=== PATIENT | female | born 1960 | race Caucasian/White ===

== ENCOUNTER 2025-04-12 09:05 | Inpatient (IN) | payer OTHER, SELFPAY ==
[2025-04-12] VITALS (23 sets, daily range): BP systolic 108–174; BP diastolic 47–75; PULSE 91–129; RESP 14–19; TEMP 36.3–37.1; O2SAT 98–100; BMI 27.1; BMI 26.7
--- NOTE | 2025-04-12 09:23 | EX.ED.DYSGE1 ---
HPI History of Present Illness Chief Complaint: Abn Labs Informant: patient and spouse/S.O. Narrative Narrative: Patient is a 64-year-old female with no significant PMHx presenting with fatigue and weakness. - Reports a large skin mass present for at least 10 years, which has been slowly growing and mushrooming out. - Mass bleeds daily, requiring pressure to stop bleeding after showers. - Evaluated by a physician yesterday, who recommended surgical removal and performed lab work. - Hemoglobin reported as 3.7 g/dL this AM, so sent to hospital. - Experiencing fatigue for about a month, worsening over the past few days and has had some near-syncopal symptoms, no LOC. - Describes legs as feeling rubbery and weak, necessitating frequent rest when walking. - Denies dyspnea or chest discomfort with ambulation. - Denies melena, hematochezia, hematuria, or syncope. - Takes antacids regularly for sour stomach and gas after meals. - Last medical evaluation was in 2013; no known history of DM or HTN. - Family history of heart conditions. PFSH PFS Medical History Non-smoker Medical History no medical history no medical history Allergy/AdvReac Type Severity Reaction Status Date / Time No Known Allergies Allergy Verified 04/12/25 09:06 Social History Smoking Status: Never smoker ROS [facility] ED Constitutional Constitutional ED: Reports fatigue and weakness; Denies chills or fever(s) Eyes Eyes: Denies change in vision or diplopia ENT ENT ED: Denies rhinorrhea or sore throat Cardiovascular Cardiovascular: Reports lightheadedness; Denies chest pain, leg edema, palpitations or syncope Respiratory/Chest Respiratory/Chest: Denies cough, dyspnea or dyspnea on exertion Gastrointestinal Gastrointestinal: Denies abdominal pain, diarrhea, nausea or vomiting Genitourinary Genitourinary ED: Denies dysuria or hematuria Musculoskeletal Musculoskeletal: Denies back pain or neck pain Integumentary Reports other Details: slowly oozing/bleeding mass right upper arm, no pain ; Denies abscess or rash Neurologic Neurologic: Denies headache(s), paresthesias or weakness Psychiatric Psychiatric: Denies anxiety or suicidal thoughts EXAM Physical Exam Const Vital Signs: 04/12/25 09:06 04/12/25 09:20 04/12/25 09:38 Temperature 98.7 F Temperature Source Oral Pulse Rate 129 H Pulse Rate [Lying] 103 H Pulse Rate [Sitting (for 1 minute prior to obtaining)] 102 H Pulse Rate [Standing (for 1 minute prior to obtaining)] 110 H Respiratory Rate 18 Respiratory Pattern Blood Pressure 170/61 H Blood Pressure [Lying] 149/61 H Blood Pressure [Sitting (for 1 minute prior to obtaining)] 157/62 H Blood Pressure [Standing (for 1 minute prior to obtaining)] 108/47 L Blood Pressure Mean 97 Blood Pressure Mean [Lying] 90 Blood Pressure Mean [Sitting (for 1 minute prior to obtaining)] 93 Blood Pressure Mean [Standing (for 1 minute prior to obtaining)] 67 Blood Pressure Source Blood Pressure Location Pulse Ox 98 100 Oxygen Delivery Method Room Air Room Air 04/12/25 09:45 04/12/25 10:59 Temperature 98.2 F Temperature Source Oral Pulse Rate 102 H Pulse Rate [Lying] Pulse Rate [Sitting (for 1 minute prior to obtaining)] Pulse Rate [Standing (for 1 minute prior to obtaining)] Respiratory Rate 18 Respiratory Pattern Normal Blood Pressure 164/64 H Blood Pressure [Lying] Blood Pressure [Sitting (for 1 minute prior to obtaining)] Blood Pressure [Standing (for 1 minute prior to obtaining)] Blood Pressure Mean 97 Blood Pressure Mean [Lying] Blood Pressure Mean [Sitting (for 1 minute prior to obtaining)] Blood Pressure Mean [Standing (for 1 minute prior to obtaining)] Blood Pressure Source Monitor Blood Pressure Location Left Arm Pulse Ox 100 Oxygen Delivery Method Positive well nourished and well developed Constitutional Narrative: pallorus. well-appearing otherwise. General Appearance ED: well developed and NAD HEENT Reports moist mucous membranes normocephalic and atraumatic Eyes PERRL and EOMs intact bilaterally Neck full ROM and supple Resp normal respiratory effort and clear to auscultation bilaterally Cardio regular rate, regular rhythm and no murmurs Rate: tachycardic GI non-tender and non-distended Auscultation: normoactive bowel sounds Palpation: soft Back/Spine no CVA tenderness General Back: other FROM Extremity normal to inspection General Extremety ED: Negative for edema, pulses abnormal or tenderness General Extremity: Negative for edema or pulses abnormal Neuro oriented x3, CN's II-XII intact bilaterally and no sensory deficits noted Sensorium / Orientation: awake and alert Motor Exam: strength 5/5 throughout Psych mental status grossly normal Skin no wounds Skin Narrative: Approximately 10 cm diameter soft tissue mass with multiple punctate sites oozing blood if wrapping taken down in the right lateral upper arm. Exophytic. Nontender. No sign of infection. MDM MDM MDM Narrative Medical decision making narrative: Assessment: The patient is a 64-year-old female presenting for profound symptomatic anemia with hemoglobin 3.9 g/dL and a chronically bleeding cutaneous mass. Orthostatic vitals are positive and creatinine is 1.47, concerning for prerenal acute kidney injury related to chronic blood loss. Iron studies confirm severe iron deficiency; platelet count 621 suggests reactive thrombocytosis. EKG shows nonspecific ST-T changes with tachycardia and normal troponin, making acute coronary syndrome unlikely; elevated proBNP 1,400 without rales or dyspnea indicates possible cardiac strain from anemia rather than overt heart failure. Symptomatic iron-deficiency anemia from the bleeding skin neoplasm is the most likely diagnosis necessitating transfusion and admission; hemoccult sent and pending to rule out GI losses as additional source; that ended up being negative. Plan: - Informed consent obtained for transfusion; risks/benefits discussed. - Typed and crossmatched for 4 U PRBC; transfusion initiated. - Admission under hospitalist service for continued transfusion, iron repletion, renal monitoring, and surgical evaluation of skin mass. - Arranged inpatient surgical consult to assess and manage bleeding skin lesion. - Provided transfusion education and answered all questions; patient agrees with plan. Diagnostics: - Hemoglobin 3.9 g/dL, microcytic hypochromic indices. - Iron studies: markedly low iron stores and saturation. - Creatinine 1.47 mg/dL with no prior comparison. - Platelets 621 K/?L. - ProBNP 1,400 pg/mL. - Troponin normal. - Orthostatic vitals positive. - EKG interpreted: nonspecific ST-T wave abnormalities with tachycardia; no ischemic changes. Independently interpreted by me, Shai Wu. Consultations: - Hospitalist ? accepted inpatient admission for ongoing transfusion and evaluation. History & Record Review Additional record(s) reviewed:: No prior records Lab Data Attestation: I reviewed the patient's lab results. Labs: Laboratory Results - last 24 hr 04/12/25 04/12/25 09:24 09:58 WBC 10.8 RBC 2.88 L Hgb 3.9 L* Hct 16.7 L MCV 58.0 L MCH 13.5 L MCHC 23.4 L RDW Std Deviation 42.4 RDW Coeff of Elisa 21.2 H Plt Count 621 H MPV 8.5 Immature Gran % (Auto) 0.600 Neut % (Auto) 79.6 H Lymph % (Auto) 12.9 L Crane % (Auto) 5.4 Eos % (Auto) 0.9 Baso % (Auto) 0.6 Absolute Neuts (auto) 8.6 H Absolute Lymphs (auto) 1.40 Nucleated RBC % 0.3 Diff Path Review May foll Platelet Estimate MKD INC Hypochromasia 3+ Anisocytosis 1+ Sodium 139 Potassium 4.0 Chloride 104 Carbon Dioxide 20.9 L Anion Gap 14 BUN 26 H Creatinine 1.47 H Estim Creat Clear Calc 46.60 L Est GFR (MDRD) Non-Af 40 L BUN/Creatinine Ratio 17.7 Glucose 132 H Calcium 9.5 Iron 10 L TIBC 376 Iron Saturation 2.6 L Unsaturated IBC 366 Ferritin 4 L Troponin T High Sens 14 NT pro BNP II 1406 H Urine Color Yellow Urine Clarity Clear Urine pH 5.0 Ur Specific [place] 1.020 Urine Protein 30 H Urine Glucose (UA) Normal Urine Ketones Negative Urine Occult Blood 25 H Urine Nitrite Negative Urine Bilirubin Negative Urine Urobilinogen Normal Ur Leukocyte Esterase 500 H Urine RBC 0 SEEN Urine WBC 0-5 SEEN Ur Squamous Epith Cells 0 SEEN Urine Bacteria 0 SEEN Urine Mucus 0 SEEN Blood Type A NEGATIVE Antibody Screen NEGATIVE Crossmatch See Detail Radiography Chest X-Ray - ED: 2 View, Read by ED Physician, No Acute Disease and No Infiltrates Diagnostic Testing: Clinical Impression(s) from Imaging Studies Chest X-Ray 04/12/25 09:52 IMPRESSION: No acute abnormality Reading Location: [facility] Rhythm Strip Rhythm Strip: Sinus Tach Rate: 124 Ectopy: None EKG Initial EKG: Attestation: I personally reviewed and interpreted this EKG as follows: Interpretation: No Acute Injury Pattern, Sinus Tachycardia and Non-Specific ST Changes Prior: No Prior Management Discussion w/another healthcare provider: Hospitalist Critical Care Time Critical Care Time: Yes Critical care time (excluding procedures): 30-74 minutes (33 min), Including time spent:, Discussing w/Patient &/or Family/Bilingual Receptionist, Discussing w/Consultants, Arranging Admission or Transfer and Performing Direct Patient Care at Bedside Discharge Plan Dx/Rx/DC Orders Clinical Impression: Symptomatic anemia, Renal insufficiency, Mass of skin of right upper extremity, Orthostatic hypotension, Iron deficiency anemia, Chronic blood loss anemia Disposition Disposition: Acute Care Hospital [facility]
[2025-04-12 09:42] LABS: Hematocrit 16.7 % (37-47); Hemoglobin 3.9 g/dL (12.0-15.0); Immature Granulocytes Count 0.060 X10^3/uL (0.0-0.0); Mean Corp Hgb Conc 23.4 g/dL (32-36); Mean Corpuscular Volume 58.0 fL (81-99); Mean Platelet Vol. 8.5 fl (6.2-12.0); NRBC Flagged by Analyzer 0.3 % (0-5); POSITIVE COUNT YES; POSITIVE MORPHOLOGY YES; Platelet Count 621 K/mm3 (150-450); RBC Distribution Width CV 21.2 % (11.6-14.6); RBC Distribution Width SD 42.4 fl (35.1-43.9); Red Blood Count 2.88 M/mm3 (4.2-5.4); White Blood Count 10.8 K/mm3 (4.4-11.0)
[2025-04-12 09:48] LABS: Differential Indicated SCAN CRITERIA MET
--- NOTE | 2025-04-12 09:52 | RAD_ITS ---
PROCEDURE: RAD/Chest 1 View (Portable)
[2025-04-12 10:02] LABS: Hypochromasia 3+
[2025-04-12 10:03] LABS: Anisocytosis 1+
[2025-04-12 10:05] LABS: Mucous, Urine 0 SEEN /hpf (<or=2+); Red Blood Cells-Urine 0 SEEN /hpf (0-5); Squamous Epithelial Cells - UA 0 SEEN /hpf (5-10)
[2025-04-12 10:08] LABS: Color, Urine Yellow (Yellow); Glucose, Dipstick Normal (Normal); Ketone-Dipstick Negative (Negative); Leukocyte Esterase-Dipstick 500 /ul (Negative); Nitrite-Dipstick Negative (Negative); Occult Blood-Urine 25 /ul (Negative); Protein-Dipstick 30 mg/dl (Negative); Specific Gravity, Urine 1.020 (1.002-1.030); Urine Bilirubin Dipstick Negative (Negative)
[2025-04-12 10:28] LABS: Anion Gap 14 (5-15); BUN 26 mg/dL (4-19); BUN/Creat Ratio 17.7 RATIO (10-20); Calcium,Total 9.5 mg/dL (7.6-11.0); Carbon Dioxide 20.9 mmol/L (21.0-32.0); Chloride 104 mmol/L (98-108); Estimated Creatinine Clearance 46.60 ml/min (50-250); Glucose 132 mg/dL (70-99); Potassium 4.0 mmol/L (3.3-5.1); Pro- Brain NATRIURETIC PEPTIDE 1406 pg/mL (<=900); Troponin T High Sensitivity 14 ng/L (<=14)
[2025-04-12 10:41] LABS: Ferritin 4 ng/mL (22-378); Iron 10 ug/dL (50-170); Iron Binding Capacity,Total 376 ug/dL (250-450); Iron Binding Capacity,Unsat 366 ug/dL (228-428)
--- NOTE | 2025-04-12 11:08 | PCM.HP.STD ---
HPI - General General Date of Admission: 04/12/25 Date of Service: 04/12/25 Chief Complaint: Fatigue HPI Narrative STEPHANIE VELEZ, is a 64 F in relatively good health with no chronic medical issues who has not been to a physician for over a decade presented to the emergency department with fatigue. Per patient she did notice increasing fatigue over the past couple of days. She does report the presence of a soft tissue lesion on the lateral aspect of the right forearm which has existed for over a decade. She did admit to occasional bleeding from the lesion. She had apparently refused to see any doctor. She finally made a decision to present to the emergency department hemoglobin was found to be 3.9. On further questioning patient denied any black tarry stools. Denied any vomiting of blood. He denied any use of [id number] pain medications. Decision was made to admit patient to a monitored bed. Patient was typed and crossmatched and an order given for patient to be transfused with 4 unit PRBC prior to patient being admitted. [facility] Medical History Non-smoker Medical History no medical history Allergy/AdvReac Type Severity Reaction Status Date / Time No Known Allergies Allergy Verified 04/12/25 09:06 Social History Smoking Status: Never smoker ROS ROS Narrative GENERAL: denies fever, chills, night sweats, weight loss, anorexia HEENT: denies headache, sinus congestion, or drainage, dysphagia RESPIRATORY: dyspnea on exertion CARDIAC: denies chest pain, palpitations, orthopnea, PND GASTROINTESTINAL: denies abdominal pain, nausea, vomiting, melena, GENITOURINARY: denies dysuria, urgency, frequency, heamaturia EXTREMITY: denies swelling MUSCULOSKELETAL: denies current joint pain or tenderness NEUROLOGIC: denies focal numbness, weakness, tingling HEMATOLOGIC: denies easy bruising and/or hemorrhage INTEGUMENT: Soft tissue skin lesion on the lateral aspect of the right forearm PSYCHIATRIC: denies suicidal or homicidal ideation Vital Signs Vital Signs Vital Signs: 04/12/25 09:06 04/12/25 09:20 04/12/25 09:38 Temperature 98.7 F Temperature Source Oral Pulse Rate 129 H Pulse Rate [Lying] 103 H Pulse Rate [Sitting (for 1 minute prior to obtaining)] 102 H Pulse Rate [Standing (for 1 minute prior to obtaining)] 110 H Respiratory Rate 18 Respiratory Pattern Blood Pressure 170/61 H Blood Pressure [Lying] 149/61 H Blood Pressure [Sitting (for 1 minute prior to obtaining)] 157/62 H Blood Pressure [Standing (for 1 minute prior to obtaining)] 108/47 L Blood Pressure Mean 97 Blood Pressure Mean [Lying] 90 Blood Pressure Mean [Sitting (for 1 minute prior to obtaining)] 93 Blood Pressure Mean [Standing (for 1 minute prior to obtaining)] 67 Blood Pressure Source Blood Pressure Location Pulse Ox 98 100 Oxygen Delivery Method Room Air Room Air 04/12/25 09:45 04/12/25 10:59 Temperature 98.2 F Temperature Source Oral Pulse Rate 102 H Pulse Rate [Lying] Pulse Rate [Sitting (for 1 minute prior to obtaining)] Pulse Rate [Standing (for 1 minute prior to obtaining)] Respiratory Rate 18 Respiratory Pattern Normal Blood Pressure 164/64 H Blood Pressure [Lying] Blood Pressure [Sitting (for 1 minute prior to obtaining)] Blood Pressure [Standing (for 1 minute prior to obtaining)] Blood Pressure Mean 97 Blood Pressure Mean [Lying] Blood Pressure Mean [Sitting (for 1 minute prior to obtaining)] Blood Pressure Mean [Standing (for 1 minute prior to obtaining)] Blood Pressure Source Monitor Blood Pressure Location Left Arm Pulse Ox 100 Oxygen Delivery Method Weight Weight: 85.638 kg Body Mass Index (BMI) 27.1 Physical Exam Narrative GENERAL: cooperative HEENT: Atraumatic; normocephalic EYES; Anicteric, pallor of the conjunctiva NECK; supple, normal thyroid, RESPIRATORY: Diminished to auscultation CARDIOVASCULAR: Regular S1 S2, GI: soft, normoactive bowel sounds, : No Renal angle tenderness; EXTREMITIES: No edema, no clubbing, MUSCULOSKELETAL: no muscle wasting NEURO: Awake; no lateralizing signs. SKIN: Soft tissue lesion measuring about 15 cm with areas of bleeding on the lateral aspect of the right forearm PSYCH; Flat affect Results Lab / Micro Data 04/12/25 09:24 04/12/25 09:24 Labs: Laboratory Results - last 24 hr 04/12/25 09:24: WBC 10.8, RBC 2.88 L, Hgb 3.9 L*, Hct 16.7 L, MCV 58.0 L, MCH 13.5 L, MCHC 23.4 L, RDW Std Deviation 42.4, RDW Coeff of Elisa 21.2 H, Plt Count 621 H, MPV 8.5, Immature Gran % (Auto) 0.600, Neut % (Auto) 79.6 H, Lymph % (Auto) 12.9 L, Cole % (Auto) 5.4, Eos % (Auto) 0.9, Baso % (Auto) 0.6, Absolute Neuts (auto) 8.6 H, Absolute Lymphs (auto) 1.40, Nucleated RBC % 0.3, Diff Path Review May foll, Platelet Estimate MKD INC, Hypochromasia 3+, Anisocytosis 1+, Sodium 139, Potassium 4.0, Chloride 104, Carbon Dioxide 20.9 L, Anion Gap 14, BUN 26 H, Creatinine 1.47 H, Estim Creat Clear Calc 46.60 L, Est GFR (MDRD) Non-Af 40 L, BUN/Creatinine Ratio 17.7, Glucose 132 H, Calcium 9.5, Iron 10 L, TIBC 376, Iron Saturation 2.6 L, Unsaturated IBC 366, Ferritin 4 L, Troponin T High Sens 14, NT pro BNP II 1406 H, Blood Type A NEGATIVE, Antibody Screen NEGATIVE, Crossmatch See Detail 04/12/25 09:58: Urine Color Yellow, Urine Clarity Clear, Urine pH 5.0, Ur Specific [place] 1.020, Urine Protein 30 H, Urine Glucose (UA) Normal, Urine Ketones Negative, Urine Occult Blood 25 H, Urine Nitrite Negative, Urine Bilirubin Negative, Urine Urobilinogen Normal, Ur Leukocyte Esterase 500 H, Urine RBC 0 SEEN, Urine WBC 0-5 SEEN, Ur Squamous Epith Cells 0 SEEN, Urine Bacteria 0 SEEN, Urine Mucus 0 SEEN Rhythm Strip Rhythm Strip: Sinus Tach Rate: 124 Ectopy: None Imaging Radiology Impression Chest X-Ray 04/12/25 09:52 IMPRESSION: No acute abnormality Reading Location: [facility] Assessment & Plan Assessment/Plan (1) Mass of skin of right upper extremity: (2) Symptomatic anemia: PLAN: Plan Patient is a 64-year-old female presented with exertional fatigue found to be anemic with a hemoglobin of 3.9 1. Severe symptomatic anemia ? Patient hemoglobin on admission was 3.9. Subsequent red cell indices indicated severe microcytic anemia with MCV of 58 and MCH of 31.5 and MCV HC of 23.4. Subsequently ordered iron studies. Patient typed and screened and crossmatched and an order given from the emergency department for patient to be transfused with 3 unit PRBC. Did explain to patient the source of anemia from chronic bleeding from the lesion on her right forearm however given her age patient will need to undergo endoscopic evaluation to rule out any underlying malignancy 2. Severe iron deficiency anemia ? Patient presented with symptomatic anemia and order was given for patient to be transfused with 4 unit PRBC. Iron studies did reveal total iron of 10 and iron saturation of 2.6. Patient was also ordered parenteral iron 3. Thrombocytosis ? Reactive secondary to patient severe iron deficiency anemia 4. Renal failure ? Baseline creatinine unknown patient started on IV hydration repeat BMP ordered for a.m. 5. Abnormal urinalysis ? Patient was found to have positive leukocyte esterase started on ceftriaxone urine culture sent 6. Elevated blood pressure ? Patient does not have a known diagnosis of hypertension. She did admit to having whitecoat syndrome. Will continue to monitor and start patient on antihypertensives if patient blood pressure remains elevated 7. DVT prophylaxis ? Bilateral SCDs Time spent in the patient's overall evaluation,decision-making process, review of diagnostic data, adjustment of management, discussion with other providers, nursing nursing and ancillary staff involved in patient's care documentation, 75 Minutes Advance planning; did discuss with the patient and family regarding advanced directives as well as CODE STATUS. Did explain the various scenarios involved ( FULL CODE, DNR CCA, DNR CCA with no intubation, and DNR CC and what each meant) patient elected to be DNR CCA no intubation. Order was placed. Time spent on discussion 16 minutes. Charges/Coding Multi Select Codes Visit Charges Visit Charges: 00284 Init Hosp Hospitalists' Procedures Procedures: 20353 Advncd Care Plan 30 Min
--- NOTE | 2025-04-12 11:51 | CASEMGMT ---
Care Management Face to Face with patient for initial transition planning/care coordination assessment in the ED.? This sports writer introduced self and role at [facility]. Patient alert and oriented. Patient willing to participate in assessment and is able to answer all questions appropriately.? Care providers, pharmacy, and demographics verified. Admitting Diagnosis: ?Chronic blood loss Other diagnosis history: ?Anemia PCP: ?Daniel Specialists: ?None Preferred Pharmacy: [facility] in [place] Insurance: ?[place] Prescription Benefit: ?yes Living Will/HPOA: ?Has completed , will bring in when able LNOK: ? Living Arrangements: ?patient lives with in a 3 story home, independent with ADLs and IADLs.? Transportation: ?Patient drives, no concerns with transportation DME: ?blood pressure cuff HHC: ?none SNF/Rehab: ?none Community Resources: ?none Behavioral Health History: ?none Patient goals: Patient wishes to discharge home, denies need for home health care at this time. Patient denies any further needs or concerns at this time. Disposition Plan: admission to acute; RN CM/SW to follow for discharge planning needs that may arise. Chery Ferrara, TREE MARKER, GROUNDSKEEPER SUPERVISOR
--- NOTE | 2025-04-12 13:40 | CASEMGMT ---
Social Work Primary Care Doctor: Elisa Dorsey [facility] Speciality doctors: none Insurance: [employer] [employer] Pharmacy: Patient utilizes [facility] in [place] Advanced directives: Patient reported she has a POA and LW and will provide a copy. LNOK:. Living Situation: Patient lives at home with her . There are no steps into the home. There is a bathroom and bedroom available on the first floor. Her mother and father lives about 5 minutes away from the patient. Her sister lives in [place]. ADL's/Prior level of functioning: independent prior Transportation: Patient still drives. DME: RW residential/home health history: none for both Support/Community Services: none Mental Health: none Substance abuse history: none Assessment: Patient lives at home with her . There are no steps into the home. There is a bathroom and bedroom available on the first floor. Her mother and father lives about 5 minutes away from the patient. Her sister lives in [place]. Patient retired a year ago. She enjoys working on [employer]. She is also working de-cluttering her home. PLAN: [place] home. Social Work to continue to follow. PRIYA Altman
[2025-04-12] MEDS: Sodium Ferric Gluconat 250 MG in 0.9% Normal Saline 250 ML 135 MG IV (14:49)
[2025-04-12] MEDS: 0.9% Normal Saline (1000mL) 1,000 ML 100 ML IV (17:32)
[2025-04-12 19:39] LABS: Troponin T High Sensitivity 12 ng/L (<=14)
[2025-04-12 21:11] LABS: Troponin T High Sens 2 HR 13 ng/L (<=14)
[2025-04-12 23:26] LABS: Troponin T High Sens 4 HR 11 ng/L (<=14)
[2025-04-13 00:53] LABS: Hematocrit 27.1 % (37-47); Hemoglobin 7.9 g/dL (12.0-15.0)
[2025-04-13 04:24] LABS: Hematocrit 25.8 % (37-47); Hemoglobin 7.6 g/dL (12.0-15.0); Immature Granulocytes Count 0.160 X10^3/uL (0.0-0.0); Mean Corp Hgb Conc 29.5 g/dL (32-36); Mean Corpuscular Volume 68.1 fL (81-99); Mean Platelet Vol. 8.5 fl (6.2-12.0); NRBC Flagged by Analyzer 1.2 % (0-5); POSITIVE MORPHOLOGY YES; Platelet Count 444 K/mm3 (150-450); RBC Distribution Width CV 28.8 % (11.6-14.6); RBC Distribution Width SD 67.4 fl (35.1-43.9); Red Blood Count 3.79 M/mm3 (4.2-5.4); White Blood Count 10.2 K/mm3 (4.4-11.0)
[2025-04-13 04:28] LABS: Differential Indicated SCAN CRITERIA MET
[2025-04-13 05:07] LABS: Magnesium 2.0 mg/dL (1.5-2.2)
[2025-04-13 05:24] LABS: AST(SGOT) 13 U/L (<=31); Alanine Aminotransfer ALT/SGPT < 5 U/L (<=34); Albumin, Serum 3.5 g/dL (3.4-4.8); Alkaline Phosphatase 57 U/L (35-104); Anion Gap 11 (5-15); BUN 24 mg/dL (4-19); BUN/Creat Ratio 22.7 RATIO (10-20); Bilirubin, Direct 0.58 mg/dL (0.00-0.30); Calcium,Total 8.6 mg/dL (7.6-11.0); Carbon Dioxide 19.7 mmol/L (21.0-32.0); Chloride 108 mmol/L (98-108); Estimated Creatinine Clearance 64.23 ml/min (50-250); Globulin 3.2 g/dL (2.2-4.2); Glucose 107 mg/dL (70-99); Potassium 4.1 mmol/L (3.3-5.1)
[2025-04-13 05:30] LABS: Anisocytosis 2+; Hypochromasia 2+
[2025-04-13 05:31] VITALS: BP 156/74; PULSE 103; RESP 16; TEMP 36.4; O2SAT 100
--- NOTE | 2025-04-13 08:18 | PN.HOSP_ITS ---
Reason for Visit
--- NOTE | 2025-04-13 08:18 | PCM.PN.HOSP ---
Reason for Visit Chief Complaint: Fatigue Subjective Subjective Patient seen, hemoglobin up to 7.6. An order was given for patient to receive additional unit of parenteral iron. Patient blood pressure control not optimal up to 171/69 started patient on losartan and amlodipine Objective Data Objective Data Vital Signs: Vital Signs Temp Pulse Resp BP Pulse Ox O2 Del Method 97.5 F L 103 H 16 156/74 H 100 Room Air 04/13/25 05:31 04/13/25 05:31 04/13/25 05:31 04/13/25 05:31 04/13/25 05:31 04/13/25 05:31 Oxygen Delivery Method Room Air Weight: 84.5 kg Body Mass Index (BMI) 26.7 Intake & Output: Intake and Output for Last 24 Hours 04/11/25 04/12/25 04/13/25 23:59 23:59 23:59 Intake Total 2198.33 / 2198.33 Balance 2198.33 / 2198.33 Lab / Micro Data 04/13/25 04:09 04/13/25 04:09 Labs: Laboratory Results - last 24 hr 04/12/25 09:24: WBC 10.8, RBC 2.88 L, Hgb 3.9 L*, Hct 16.7 L, MCV 58.0 L, MCH 13.5 L, MCHC 23.4 L, RDW Std Deviation 42.4, RDW Coeff of Elisa 21.2 H, Plt Count 621 H, MPV 8.5, Immature Gran % (Auto) 0.600, Neut % (Auto) 79.6 H, Lymph % (Auto) 12.9 L, [place] % (Auto) 5.4, Eos % (Auto) 0.9, Baso % (Auto) 0.6, Absolute Neuts (auto) 8.6 H, Absolute Lymphs (auto) 1.40, Nucleated RBC % 0.3, Diff Path Review Reviewed, Platelet Estimate MKD INC, Hypochromasia 3+, Anisocytosis 1+, Sodium 139, Potassium 4.0, Chloride 104, Carbon Dioxide 20.9 L, Anion Gap 14, BUN 26 H, Creatinine 1.47 H, Estim Creat Clear Calc 46.60 L, Est GFR (MDRD) Non-Af 40 L, BUN/Creatinine Ratio 17.7, Glucose 132 H, Calcium 9.5, Iron 10 L, TIBC 376, Iron Saturation 2.6 L, Unsaturated IBC 366, Ferritin 4 L, Troponin T High Sens 14, NT pro BNP II 1406 H, Blood Type A NEGATIVE, Antibody Screen NEGATIVE, Crossmatch See Detail 04/12/25 09:58: Urine Color Yellow, Urine Clarity Clear, Urine pH 5.0, Ur Specific [place] 1.020, Urine Protein 30 H, Urine Glucose (UA) Normal, Urine Ketones Negative, Urine Occult Blood 25 H, Urine Nitrite Negative, Urine Bilirubin Negative, Urine Urobilinogen Normal, Ur Leukocyte Esterase 500 H, Urine RBC 0 SEEN, Urine WBC 0-5 SEEN, Ur Squamous Epith Cells 0 SEEN, Urine Bacteria 0 SEEN, Urine Mucus 0 SEEN 04/12/25 18:37: Troponin T High Sens 12 D 04/12/25 20:41: Troponin T Hi Sens 2 Hr 13 04/12/25 22:49: Troponin T Hi Sens 4Hr 11 04/13/25 00:37: Hgb 7.9 L, Hct 27.1 L 04/13/25 04:09: WBC 10.2, RBC 3.79 L, Hgb 7.6 L, Hct 25.8 L, MCV 68.1 L D, MCH 20.1 L, MCHC 29.5 L D, RDW Std Deviation 67.4 H, RDW Coeff of Elisa 28.8 H, Plt Count 444, MPV 8.5, Immature Gran % (Auto) 1.600 H, Neut % (Auto) 69.8, Lymph % (Auto) 16.4 L, [place] % (Auto) 9.3, Eos % (Auto) 2.2, Baso % (Auto) 0.7, Absolute Neuts (auto) 7.1, Absolute Lymphs (auto) 1.67, Nucleated RBC % 1.2, Hypochromasia 2+, Anisocytosis 2+, Sodium 138, Potassium 4.1, Chloride 108, Carbon Dioxide 19.7 L, Anion Gap 11, BUN 24 H, Creatinine 1.06, Estim Creat Clear Calc 64.23, Est GFR (MDRD) Non-Af 59 L, BUN/Creatinine Ratio 22.7 H, Glucose 107 H, Calcium 8.6, Phosphorus 3.0, Magnesium 2.0, Total Bilirubin 1.52 H, Direct Bilirubin 0.58 H, AST 13, ALT < 5, Alkaline Phosphatase 57, Total Protein 6.6, Albumin 3.5, Globulin 3.2, TSH 2.240 Micro: Microbiology 04/12/25 10:50 Stool Stool Occult Blood (HILARY) - Final Radiography Diagnostic Testing: Radiology Impression Chest X-Ray 04/12/25 09:52 IMPRESSION: No acute abnormality Reading Location: [facility] Rhythm Strip Rhythm Strip: Sinus Tach Rate: 124 Ectopy: None Physical Exam Narrative GENERAL: cooperative HEENT: Atraumatic; normocephalic EYES; Anicteric, pallor of the conjunctiva NECK; supple, normal thyroid, RESPIRATORY: Diminished to auscultation CARDIOVASCULAR: Regular S1 S2, GI: soft, normoactive bowel sounds, : No Renal angle tenderness; EXTREMITIES: No edema, no clubbing, MUSCULOSKELETAL: no muscle wasting NEURO: Awake; no lateralizing signs. SKIN: Soft tissue lesion measuring about 15 cm with areas of bleeding on the lateral aspect of the right forearm PSYCH; Flat affect Assessment & Plan Assessment/Plan (1) Mass of skin of right upper extremity: (2) Symptomatic anemia: PLAN: Plan Patient is a 64-year-old female presented with exertional fatigue found to be anemic with a hemoglobin of 3.9 1. Severe symptomatic anemia ? Patient hemoglobin on admission was 3.9. Subsequent red cell indices indicated severe microcytic anemia with MCV of 58 and MCH of 31.5 and MCV HC of 23.4. Subsequently ordered iron studies. Patient typed and screened and crossmatched and an order given from the emergency department for patient to be transfused with 3 unit PRBC. Did explain to patient the source of anemia from chronic bleeding from the lesion on her right forearm however given her age patient will need to undergo endoscopic evaluation to rule out any underlying malignancy - 04/13/2025 patient hemoglobin up to 7.6 and order was given for patient to receive additional parenteral iron 2. Severe iron deficiency anemia ? Patient presented with symptomatic anemia and order was given for patient to be transfused with 4 unit PRBC. Iron studies did reveal total iron of 10 and iron saturation of 2.6. Patient was also ordered parenteral iron 3. Thrombocytosis ? Reactive secondary to patient severe iron deficiency anemia 4. Acute renal failure ? Baseline creatinine unknown patient started on IV hydration repeat BMP ordered for a.m. ? 04/13/2025; patient baseline creatinine was unknown at the time of her admission kidney function however did improve and creatinine is down to 1.06 5. Abnormal urinalysis ? Patient was found to have positive leukocyte esterase started on ceftriaxone urine culture sent ? 04/13/2025; patient remains on ceftriaxone urine cultures pending 6. Elevated blood pressure?newly diagnosed hypertension ? Patient does not have a known diagnosis of hypertension. She did admit to having whitecoat syndrome. Will continue to monitor and start patient on antihypertensives if patient blood pressure remains elevated ? 04/13/2025; patient blood pressure remains markedly elevated patient started on amlodipine as well as losartan 7. Soft tissue lesion measuring about 15 cm with areas of bleeding on the lateral aspect of the right forearm ? Patient has had a lesion for over 10 years. Plan was to have consulted plastic surgery for eval however plastic surgery currently not taking any consult. Plan is to schedule an outpatient appointment with either plastic surgery or dermatology on discharge 8. DVT prophylaxis ? Bilateral SCDs Time spent in the patient's overall evaluation,decision-making process, review of diagnostic data, adjustment of management, discussion with other providers, nursing nursing and ancillary staff involved in patient's care documentation, 50-minute Charges/Coding Visit Charges Inpatient E&M: 24334 [facility] Hosp L3
[2025-04-13] MEDS: 0.9% Normal Saline (1000mL) 1,000 ML 100 ML IV ×2 (09:12→21:50)
[2025-04-13 09:16] VITALS: BP 171/69; PULSE 96; RESP 16; TEMP 36.6; O2SAT 100
[2025-04-13 13:37] VITALS: BP 170/72; PULSE 103; RESP 14; TEMP 36.6; O2SAT 100
--- NOTE | 2025-04-13 15:38 | WOUNDNOTE ---
wound photo: right posterior upper arm
--- NOTE | 2025-04-13 15:39 | WOUNDNOTE ---
wound photo: right posterior upper arm
[2025-04-13 21:47] VITALS: BP 165/75; PULSE 104; RESP 20; TEMP 37.1; O2SAT 99
[2025-04-14 05:14] VITALS: BP 162/87; PULSE 89; RESP 18; TEMP 37.3; O2SAT 100
[2025-04-14] MEDS: 0.9% Normal Saline (1000mL) 1,000 ML 100 ML IV (06:40)
[2025-04-14 06:48] LABS: Hematocrit 27.4 % (37-47); Hemoglobin 7.8 g/dL (12.0-15.0); Immature Granulocytes Count 0.050 X10^3/uL (0.0-0.0); Mean Corp Hgb Conc 28.5 g/dL (32-36); Mean Corpuscular Volume 69.9 fL (81-99); Mean Platelet Vol. 8.6 fl (6.2-12.0); NRBC Flagged by Analyzer 0.5 % (0-5); POSITIVE MORPHOLOGY YES; Platelet Count 467 K/mm3 (150-450); RBC Distribution Width CV 29.9 % (11.6-14.6); RBC Distribution Width SD 71.7 fl (35.1-43.9); Red Blood Count 3.92 M/mm3 (4.2-5.4); White Blood Count 9.7 K/mm3 (4.4-11.0)
[2025-04-14 06:49] LABS: Differential Indicated SCAN CRITERIA MET
[2025-04-14 07:13] LABS: Anisocytosis 3+; Differential Comment SCANNED
--- NOTE | 2025-04-14 07:37 | PN.HOSP_ITS ---
Reason for Visit
--- NOTE | 2025-04-14 07:37 | PCM.PN.HOSP ---
Reason for Visit Chief Complaint: Fatigue Subjective Subjective Patient seen hemoglobin stable at 7.8. Plan is for patient to follow-up with primary care physician to be referred to dermatology/plastic surgery as outpatient. Patient will also need to follow-up with GI for outpatient endoscopic evaluation Objective Data Objective Data Vital Signs: Vital Signs Temp Pulse Resp BP Pulse Ox O2 Del Method 99.1 F 89 18 162/87 H 100 Room Air 04/14/25 05:14 04/14/25 05:14 04/14/25 05:14 04/14/25 05:14 04/14/25 05:14 04/14/25 05:14 Oxygen Delivery Method Room Air Weight: 84.5 kg Body Mass Index (BMI) 26.7 Intake & Output: Intake and Output for Last 24 Hours 04/12/25 04/13/25 04/14/25 23:59 23:59 23:59 Intake Total 2198.33 / 2198.33 2811.67 / 2811.67 883.33 / 883.33 Balance 2198.33 / 2198.33 2811.67 / 2811.67 883.33 / 883.33 Lab / Micro Data 04/14/25 06:31 04/14/25 06:31 Labs: Laboratory Results - last 24 hr 04/14/25 06:31: WBC 9.7, RBC 3.92 L, Hgb 7.8 L, Hct 27.4 L, MCV 69.9 L, MCH 19.9 L, MCHC 28.5 L, RDW Std Deviation 71.7 H, RDW Coeff of Elisa 29.9 H, Plt Count 467 H, MPV 8.6, Immature Gran % (Auto) 0.500, Neut % (Auto) 62.7, Lymph % (Auto) 20.7, [place] % (Auto) 9.3, Eos % (Auto) 6.1 H, Baso % (Auto) 0.7, Absolute Neuts (auto) 6.1, Absolute Lymphs (auto) 2.01, Nucleated RBC % 0.5, Differential Comment SCANNED, Anisocytosis 3+ Micro: Microbiology 04/12/25 09:58 Urine, Clean Catch Urine Culture - Final Mixed Gram Positive Organisms 04/12/25 10:50 Stool Stool Occult Blood (HILARY) - Final Rhythm Strip Rhythm Strip: Sinus Tach Rate: 124 Ectopy: None Physical Exam Narrative GENERAL: cooperative HEENT: Atraumatic; normocephalic EYES; Anicteric, pallor of the conjunctiva NECK; supple, normal thyroid, RESPIRATORY: Diminished to auscultation CARDIOVASCULAR: Regular S1 S2, GI: soft, normoactive bowel sounds, : No Renal angle tenderness; EXTREMITIES: No edema, no clubbing, MUSCULOSKELETAL: no muscle wasting NEURO: Awake; no lateralizing signs. SKIN: Soft tissue lesion measuring about 15 cm with areas of bleeding on the lateral aspect of the right forearm PSYCH; Flat affect Assessment & Plan Assessment/Plan (1) Mass of skin of right upper extremity: (2) Symptomatic anemia: PLAN: Plan Patient is a 64-year-old female presented with exertional fatigue found to be anemic with a hemoglobin of 3.9 1. Severe symptomatic anemia ? Patient hemoglobin on admission was 3.9. Subsequent red cell indices indicated severe microcytic anemia with MCV of 58 and MCH of 31.5 and MCV HC of 23.4. Subsequently ordered iron studies. Patient typed and screened and crossmatched and an order given from the emergency department for patient to be transfused with 3 unit PRBC. Did explain to patient the source of anemia from chronic bleeding from the lesion on her right forearm however given her age patient will need to undergo endoscopic evaluation to rule out any underlying malignancy - 04/13/2025 patient hemoglobin up to 7.6 and order was given for patient to receive additional parenteral iron ? 04/14/2025;Patient seen hemoglobin stable at 7.8. Plan is for patient to follow-up with primary care physician to be referred to dermatology/plastic surgery as outpatient. Patient will also need to follow-up with GI for outpatient endoscopic evaluation 2. Severe iron deficiency anemia ? Patient presented with symptomatic anemia and order was given for patient to be transfused with 4 unit PRBC. Iron studies did reveal total iron of 10 and iron saturation of 2.6. Patient was also ordered parenteral iron 3. Thrombocytosis ? Reactive secondary to patient severe iron deficiency anemia 4. Acute renal failure ? Baseline creatinine unknown patient started on IV hydration repeat BMP ordered for a.m. ? 04/13/2025; patient baseline creatinine was unknown at the time of her admission kidney function however did improve and creatinine is down to 1.06 5. Abnormal urinalysis ? Patient was found to have positive leukocyte esterase started on ceftriaxone urine culture sent ? 04/13/2025; patient remains on ceftriaxone urine cultures pending 6. Elevated blood pressure?newly diagnosed hypertension ? Patient does not have a known diagnosis of hypertension. She did admit to having whitecoat syndrome. Will continue to monitor and start patient on antihypertensives if patient blood pressure remains elevated ? 04/13/2025; patient blood pressure remains markedly elevated patient started on amlodipine as well as losartan 7. Soft tissue lesion measuring about 15 cm with areas of bleeding on the lateral aspect of the right forearm ? Patient has had a lesion for over 10 years. Plan was to have consulted plastic surgery for eval however plastic surgery currently not taking any consult. Plan is to schedule an outpatient appointment with either plastic surgery or dermatology on discharge 8. DVT prophylaxis ? Bilateral SCDs Time spent in the patient's overall evaluation,decision-making process, review of diagnostic data, adjustment of management, discussion with other providers, nursing nursing and ancillary staff involved in patient's care documentation, 35-minute
[2025-04-14 07:39] LABS: Anion Gap 11 (5-15); BUN 18 mg/dL (4-19); BUN/Creat Ratio 16.2 RATIO (10-20); Calcium,Total 8.8 mg/dL (7.6-11.0); Carbon Dioxide 20.4 mmol/L (21.0-32.0); Chloride 109 mmol/L (98-108); Estimated Creatinine Clearance 61.34 ml/min (50-250); Glucose 97 mg/dL (70-99); Potassium 4.2 mmol/L (3.3-5.1)
[2025-04-14 08:39] VITALS: BP 156/76; PULSE 101; RESP 14; TEMP 37.3; O2SAT 100
--- NOTE | 2025-04-14 09:45 | PCM.DC.SUM ---
Providers Date of Admission: 04/12/25 Date of Discharge: 04/14/25 Primary Care Physician: Peter Sanchez PA-C Consultations 04/13/25 14:03 Consult: Onc/Wound/household appliance installer Routine Comment: Reason For Visit: SEVERE ANEMIA Diagnosis Discharge Diagnosis (1) Mass of skin of right upper extremity: Status: Acute Code(s): R22.31 - Localized swelling, mass and lump, right upper limb (2) Symptomatic anemia: Status: Acute Code(s): D64.9 - Anemia, unspecified Plan Patient is a 64-year-old female presented with exertional fatigue found to be anemic with a hemoglobin of 3.9 1. Severe symptomatic anemia ? Patient hemoglobin on admission was 3.9. Subsequent red cell indices indicated severe microcytic anemia with MCV of 58 and MCH of 31.5 and MCV HC of 23.4. Subsequently ordered iron studies. Patient typed and screened and crossmatched and an order given from the emergency department for patient to be transfused with 3 unit PRBC. Did explain to patient the source of anemia from chronic bleeding from the lesion on her right forearm however given her age patient will need to undergo endoscopic evaluation to rule out any underlying malignancy - 04/13/2025 patient hemoglobin up to 7.6 and order was given for patient to receive additional parenteral iron ? 04/14/2025;Patient seen hemoglobin stable at 7.8. Plan is for patient to follow-up with primary care physician to be referred to dermatology/plastic surgery as outpatient. Patient will also need to follow-up with GI for outpatient endoscopic evaluation 2. Severe iron deficiency anemia ? Patient presented with symptomatic anemia and order was given for patient to be transfused with 4 unit PRBC. Iron studies did reveal total iron of 10 and iron saturation of 2.6. Patient was also ordered parenteral iron 3. Thrombocytosis ? Reactive secondary to patient severe iron deficiency anemia 4. Acute renal failure ? Baseline creatinine unknown patient started on IV hydration repeat BMP ordered for a.m. ? 04/13/2025; patient baseline creatinine was unknown at the time of her admission kidney function however did improve and creatinine is down to 1.06 5. Abnormal urinalysis ? Patient was found to have positive leukocyte esterase started on ceftriaxone urine culture sent ? 04/13/2025; patient remains on ceftriaxone urine cultures pending 6. Elevated blood pressure?newly diagnosed hypertension ? Patient does not have a known diagnosis of hypertension. She did admit to having whitecoat syndrome. Will continue to monitor and start patient on antihypertensives if patient blood pressure remains elevated ? 04/13/2025; patient blood pressure remains markedly elevated patient started on amlodipine as well as losartan 7. Soft tissue lesion measuring about 15 cm with areas of bleeding on the lateral aspect of the right forearm ? Patient has had a lesion for over 10 years. Plan was to have consulted plastic surgery for eval however plastic surgery currently not taking any consult. Plan is to schedule an outpatient appointment with either plastic surgery or dermatology on discharge 8. DVT prophylaxis ? Bilateral SCDs Time spent in the patient's overall evaluation,decision-making process, review of diagnostic data, adjustment of management, discussion with other providers, nursing nursing and ancillary staff involved in patient's care documentation, 35-minute Medications at Discharge Home Medications amlodipine 5 mg tablet 5 mg PO DAILY #90 tabs 04/14/25 losartan 50 mg-hydrochlorothiazide 12.5 mg tablet 1 tab PO DAILY #90 tabs 04/14/25 polysaccharide iron complex 150 mg iron capsule (Ferrex) 150 mg PO DAILYCM #90 caps 04/14/25 Physical Exam Narrative GENERAL: cooperative HEENT: Atraumatic; normocephalic EYES; Anicteric, pallor of the conjunctiva NECK; supple, normal thyroid, RESPIRATORY: Diminished to auscultation CARDIOVASCULAR: Regular S1 S2, GI: soft, normoactive bowel sounds, : No Renal angle tenderness; EXTREMITIES: No edema, no clubbing, MUSCULOSKELETAL: no muscle wasting NEURO: Awake; no lateralizing signs. SKIN: Soft tissue lesion measuring about 15 cm with areas of bleeding on the lateral aspect of the right forearm PSYCH; Flat affect Weight / BMI Weight Weight: 84.5 kg Body Mass Index (BMI) 26.7 ABG / Lab / Microbiology Data 04/14/25 06:31 04/14/25 06:31 Laboratory: Laboratory Results - last 24 hr 04/14/25 06:31: WBC 9.7, RBC 3.92 L, Hgb 7.8 L, Hct 27.4 L, MCV 69.9 L, MCH 19.9 L, MCHC 28.5 L, RDW Std Deviation 71.7 H, RDW Coeff of Elisa 29.9 H, Plt Count 467 H, MPV 8.6, Immature Gran % (Auto) 0.500, Neut % (Auto) 62.7, Lymph % (Auto) 20.7, [place] % (Auto) 9.3, Eos % (Auto) 6.1 H, Baso % (Auto) 0.7, Absolute Neuts (auto) 6.1, Absolute Lymphs (auto) 2.01, Nucleated RBC % 0.5, Differential Comment SCANNED, Anisocytosis 3+, Sodium 140, Potassium 4.2, Chloride 109 H, Carbon Dioxide 20.4 L, Anion Gap 11, BUN 18, Creatinine 1.11, Estim Creat Clear Calc 61.34, Est GFR (MDRD) Non-Af 56 L, BUN/Creatinine Ratio 16.2, Glucose 97, Calcium 8.8 Microbiology: Microbiology 04/12/25 09:58 Urine, Clean Catch Urine Culture - Final Mixed Gram Positive Organisms 04/12/25 10:50 Stool Stool Occult Blood (HILARY) - Final D/C Instructions Discharge Activity: Return to Normal Activity Call your doctor if you observe: Fever of 101 or Higher, Shortness of breath, Fainting spells and Chest pain DC O2, CPAP, BIPAP Needs Home O2 Discharge instructions: No Meaningful Use Info Meaningful Use Meaningful Use Diagnoses (Choose all that apply): None applicable Discharge Plan Admission Admit Date/Time: 04/12/25 11:05 Attending Provider: Marv Cottrell Primary Care Provider: Peter Sanchez Discharge Orders/Prescriptions Prescriptions: New polysaccharide iron complex [Ferrex 150] 150 mg iron Capsule 150 mg PO DAILYCM Qty: 90 0RF amlodipine 5 mg Tablet 5 mg PO DAILY Qty: 90 0RF losartan-hydrochlorothiazide 50-12.5 mg tablet 1 tab PO DAILY Qty: 90 0RF Referrals / Follow Up: Ector Aguilar DO [Med Staff - Active Staff, Gastroenterology] - Within 2 Weeks Referral Note: For outpatient EGD and colonoscopy Ian Lopez MD [Med Staff - Active Staff, Plastic Surgery] Peter Sanchez PA-C [Primary Care Provider, Medical] - Within 1 Week Referral Note: To be referred to outpatient dermatology/plastic surgery Disposition Disposition (needs filled in before D/C Order can be placed): Home, Self Care Charges/Coding Visit Charges Inpatient E&M: 43221 Disch Hosp >30min
--- NOTE | 2025-04-14 11:22 | PHA.DC_ITS ---
Pharmacy DC Med Counseling
--- NOTE | 2025-04-14 11:22 | PHA.DC.COU.R ---
Pharmacy [facility] Counseling Pharmacy Services has performed discharge medication counseling for this patient. The patient was counseled on the following discharge medications and changes in medications for homegoing review. - Losartan/HCTZ 50/12.5 mg tablet, Amlodipine 5 mg tablet, Ferrex 150 mg tablet The Reason for Use, instructions for use, and potential side effects were reviewed for all new medications. The patient's questions regarding all of their medications were answered. The patient was able to verbally demonstrate an understanding of their discharge medications.
== END 2025-04-14 11:14 | disposition home or self-care (01) | DRG 812 ==
LOC: ED 10:33 → PCU 11:35
PROVIDERS: Family Medicine; Admitting Provider Internal Medicine; Emergency Provider Emergency Medicine; PCP Student in an Organized Health Care Education/Training Program; Visit Provider Internal Medicine
DX: D50.0 Iron deficiency anemia secondary to blood loss (chronic) (principal); N17.9 Acute kidney failure, unspecified; Z66 Do not resuscitate; I95.1 Orthostatic hypotension; D75.839 Thrombocytosis, unspecified; R22.31 Localized swelling, mass and lump, right upper limb; R82.998 Other abnormal findings in urine; R03.0 Elevated blood-pressure reading, without diagnosis of hypertension
CPT/HCPCS: 36415; 71045; 80048; 80076; 81001; 82274; 82728; 83540; 83550; 83735; 83880; 84100; 84443; 84484; 85014; 85018; 85025; 86850; 86900; 86901; 87086; 87088; 93005; 97802; 99285; P9016; A4216; J2916

== ENCOUNTER → 2025-06-03 | Outpatient (CLI) | payer BC, SELFPAY ==
--- NOTE | 2025-06-03 07:52 | CT_ITS ---
EXAM: CT of the right shoulder and proximal to mid humerus with intravenous contrast. CLINICAL HISTORY: Right arm mass, reportedly bleeding/oozing. COMPARISON: None. TECHNIQUE: CT of the right shoulder and proximal to mid humerus with intravenous contrast. Sagittal and coronal reconstructed images are also obtained. Intravenous administration of 57 mL Isovue-300. Dose: CTDIvol 26.85 mGy. DLP 833.66 mgy-cm. FINDINGS: Some motion is seen, limiting evaluation of a small segment of the humeral shaft. Numerous hepatic cysts are seen, upon partial visualization of the liver. At least moderate degenerative changes seen of the right acromioclavicular joint, with associated marked joint narrowing. The right glenohumeral joint demonstrates minimal degenerative changes. An expansile lesion extending from the skin of the proximal to mid right posterior and lateral arm extends to the level of the shoulder, and is measured at approximately 2.0 x 8.7 x 13.2 cm. Fairly homogeneous mild enhancement is seen. No extension into the deep subcutaneous tissues or other deeper structures is seen. No abscess formation is seen. No adenopathy is seen in visualized areas. CT/Extremity Upper WITH Contrast IMPRESSION: 1. Based in the skin, a large mildly enhancing soft tissue mass is seen superfi cially at the proximal right arm. 2. Additional findings as noted Reading Location: [place] [id number]
--- OUTSIDE RECORDS SUMMARY | 2025-06-03 07:54 | XMS RPT_ITS | CCD ---
Author Organization [facility] Care Team Providers Care Disability Aide Name Role Phone Marv Cottrell Admitting Unavailable Sanchez, Peter Primary Care Unavailable Kittoe, Marv Consulting Unavailable Kittoe, Marv Attending Unavailable Kittoe, Marv Admitting Unavailable Sanchez, Peter Primary Care Unavailable Kittoe, Marv Consulting Unavailable Kittoe, Marv Attending Unavailable Kittoe, Marv Attending Unavailable Kittoe, Marv Admitting Unavailable Sanchez, Peter Primary Care Unavailable Kittoe, Marv Admitting Unavailable Sanchez, Peter Primary Care Unavailable Kittoe, Marv Consulting Unavailable Kittoe, Marv Attending Unavailable Problems Problem Classification Problem Date Documented Da te Episodic/Chronic Deficiency and other anemia (1 source) Iron deficiency anemia secondary to blood loss (chronic); Translations: [Iron deficiency anemia secondary to blood loss (chronic)] Onset: 04-22-2025 Chronic Deficiency and other anemia (1 source) Anemia, unspecified; Translations: [Anemia, unspecified] Onset: 04-14-2025 Episodic Other skin disorders (1 source) Localized swelling, mass and lump, right upper limb; Translations: [Localized swelling, mass and lump, right upper limb] Onset: 04-14-2025 Episodic Results Test Name Value Interpretation Reference Range Facility Basic Metabolic Profile (BMP )on 04-15-2025 BUN Normal 10-02 [facility] Comment on above: Result Comment: Canc elled via OM: Order cancelled - Patient discharged Performed By: #### L 500.3400, L501.9520, L500.2500, L501.2300, L100.0100, L501.5200 #### [facility] [address] [place], [address] BUN/CRE Normal 04-04 [facility] Comment on above: Result Comment: Canc elled via OM: Order cancelled - Patient discharged Performed By: #### L 500.3400, L501.9520, L500.2500, L501.2300, L100.0100, L501.5200 #### [facility] [address] [place], [address] Calcium Normal 7.6-11.0 [facility] Comment on above: Result Comment: Canc elled via OM: Order cancelled - Patient discharged Performed By: #### L 500.3400, L501.9520, L500.2500, L501.2300, L100.0100, L501.5200 #### [facility] [address] [place], [address] CL Normal 98-108 [facility] Comment on above: Result Comment: Canc elled via OM: Order cancelled - Patient discharged Performed By: #### L 500.3400, L501.9520, L500.2500, L501.2300, L100.0100, L501.5200 #### [facility] [address] [place], [address] CO2 Normal 21.0-32.0 [facility] Comment on above: Result Comment: Canc elled via OM: Order cancelled - Patient discharged Performed By: #### L 500.3400, L501.9520, L500.2500, L501.2300, L100.0100, L501.5200 #### [facility] [address] [place], [address] CREAT,SERUM Normal 0.70-1.20 [facility] Comment on above: Result Comment: Canc elled via OM: Order cancelled - Patient discharged Performed By: #### L 500.3400, L501.9520, L500.2500, L501.2300, L100.0100, L501.5200 #### [facility] [address] [place], [address] eGFR Normal >60 [facility] Comment on above: Result Comment: Canc elled via OM: Order cancelled - Patient discharged Performed By: #### L 500.3400, L501.9520, L500.2500, L501.2300, L100.0100, L501.5200 #### [facility] [address] [place], [address] GAP Normal 5-15 [facility] Comment on above: Result Comment: Canc elled via OM: Order cancelled - Patient discharged Performed By: #### L 500.3400, L501.9520, L500.2500, L501.2300, L100.0100, L501.5200 #### [facility] [address] [place], [address] GLU Normal 70-99 [facility] Comment on above: Result Comment: Canc elled via OM: Order cancelled - Patient discharged Performed By: #### L 500.3400, L501.9520, L500.2500, L501.2300, L100.0100, L501.5200 #### [facility] [address] [place], [address] Potassium Normal 3.3-5.1 [facility] Comment on above: Result Comment: Canc elled via OM: Order cancelled - Patient discharged Performed By: #### L 500.3400, L501.9520, L500.2500, L501.2300, L100.0100, L501.5200 #### [facility] [address] [place], [address] Basic Metabolic Profile (BMP) Normal 133-145 [facility] Comment on above: Result Comment: Canc elled via OM: Order cancelled - Patient discharged Performed By: #### L 500.3400, L501.9520, L500.2500, L501.2300, L100.0100, L501.5200 #### [facility] [address] [place], [address] CBC W/Diff, Automatedon 10-3 Absolute Neut Normal 2.0-7.7 [facility] Comment on above: Result Comment: Canc elled via OM: Order cancelled - Patient discharged Performed By: #### L 500.3400, L501.9520, L500.2500, L501.2300, L100.0100, L501.5200 #### [facility] [address] [place], [place], [phone] (337) HCT Normal 37-47 [facility] Comment on above: Result Comment: Canc elled via OM: Order cancelled - Patient discharged Performed By: #### L 500.3400, L501.9520, L500.2500, L501.2300, L100.0100, L501.5200 #### [facility] [address] [place], [place], [phone] Normal 12.0-15.0 [facility] Comment on above: Result Comment: Canc elled via OM: Order cancelled - Patient discharged Performed By: #### L 500.3400, L501.9520, L500.2500, L501.2300, L100.0100, L501.5200 #### [facility] [address] [place], [place], [phone] ([address] MCH Normal 27.0-32.0 [facility] Comment on above: Result Comment: Canc elled via OM: Order cancelled - Patient discharged Performed By: #### L 500.3400, L501.9520, L500.2500, L501.2300, L100.0100, L501.5200 #### [facility] [address] [place], [place], [phone] MCHC Normal 32-36 [facility] Comment on above: Result Comment: Canc elled via OM: Order cancelled - Patient discharged Performed By: #### L 500.3400, L501.9520, L500.2500, L501.2300, L100.0100, L501.5200 #### [facility] [address] [place], [address] MCV Normal 81-99 [facility] Comment on above: Result Comment: Canc elled via OM: Order cancelled - Patient discharged Performed By: #### L 500.3400, L501.9520, L500.2500, L501.2300, L100.0100, L501.5200 #### [facility] [address] [place], [address] NEUT% Normal 47-70 [facility] Comment on above: Result Comment: Canc elled via OM: Order cancelled - Patient discharged Performed By: #### L 500.3400, L501.9520, L500.2500, L501.2300, L100.0100, L501.5200 #### [facility] [address] [place] [address] PLT Normal 150-450 [facility] Comment on above: Result Comment: Canc elled via OM: Order cancelled - Patient discharged Performed By: #### L 500.3400, L501.9520, L500.2500, L501.2300, L100.0100, L501.5200 #### [facility] [address] [place], [address] RBC Normal 4.2-5.4 [facility] Comment on above: Result Comment: Canc elled via OM: Order cancelled - Patient discharged Performed By: #### L 500.3400, L501.9520, L500.2500, L501.2300, L100.0100, L501.5200 #### [facility] [address] [place], [address] RDW CV Normal 11.6-14.6 [facility] Comment on above: Result Comment: Canc elled via OM: Order cancelled - Patient discharged Performed By: #### L 500.3400, L501.9520, L500.2500, L501.2300, L100.0100, L501.5200 #### [facility] [address] [place], [address] RDW SD Normal 35.1-43.9 [facility] Comment on above: Result Comment: Canc elled via OM: Order cancelled - Patient discharged Performed By: #### L 500.3400, L501.9520, L500.2500, L501.2300, L100.0100, L501.5200 #### [facility] [address] [place], [address] WBC Normal 4.4-11.0 [facility] Comment on above: Result Comment: Canc elled via OM: Order cancelled - Patient discharged Performed By: #### L 500.3400, L501.9520, L500.2500, L501.2300, L100.0100, L501.5200 #### [facility] [address] [place], [address] Basic Metabolic Profile (BMP )on 04-14-2025 BUN/CRE 16.2 RATIO Normal 04-04 [facility] Comment on above: Performed By: #### L 500.3400, L501.9520, L500.2500, L501.2300, L100.0100, L501.5200 #### [facility] [address] [place], [address] Calcium [Mass/Vol] 8.8 mg/dL Normal 7.6-11.0 [facility] Comment on above: Performed By: #### L 500.3400, L501.9520, L500.2500, L501.2300, L100.0100, L501.5200 #### [facility] [address] [place], [address] Chloride [Moles/Vol] 109 mmol/L High 98-108 [facility] Comment on above: Performed By: #### L 500.3400, L501.9520, L500.2500, L501.2300, L100.0100, L501.5200 #### [facility] [address] [place], [address] CO2 [Moles/Vol] 20.4 mmol/L Low 21.0-32.0 [facility] Comment on above: Performed By: #### L 500.3400, L501.9520, L500.2500, L501.2300, L100.0100, L501.5200 #### [facility] [address] [place], [address] Creatinine [Mass/Vol] 1.11 mg/dL Normal 0.70-1.20 [facility] Comment on above: Performed By: #### L 500.3400, L501.9520, L500.2500, L501.2300, L100.0100, L501.5200 #### [facility] [address] [place], [address] ECRCL 61.34 ml/min Normal 50-250 [facility] Comment on above: Performed By: #### L 500.3400, L501.9520, L500.2500, L501.2300, L100.0100, L501.5200 #### [facility] [address] [place], [address] GAP 11 Normal 5-15 [facility] Comment on above: Performed By: #### L 500.3400, L501.9520, L500.2500, L501.2300, L100.0100, L501.5200 #### [facility] [address] [place], [address] GFR/1.73 sq M.predicted among non-blacks MDRD (S/P/Bld) [Vol rate/Area] 56 mL/min/{1.73_m2} Low >60 [facility] Comment on above: Result Comment: mL/m in/1.73m2 CKD-EPI Creatinine Equation (2020) Performed By: #### L 500.3400, L501.9520, L500.2500, L501.2300, L100.0100, L501.5200 #### [facility] [address] [place], [address] Glucose [Mass/Vol] 97 mg/dL Normal 70-99 [facility] Comment on above: Performed By: #### L 500.3400, L501.9520, L500.2500, L501.2300, L100.0100, L501.5200 #### [facility] [address] [place], [address] Potassium [Moles/Vol] 4.2 mmol/L Normal 3.3-5.1 [facility] Comment on above: Performed By: #### L 500.3400, L501.9520, L500.2500, L501.2300, L100.0100, L501.5200 #### [facility] [address] [place], [address] Sodium [Moles/Vol] 140 mmol/L Normal 133-145 [facility] Comment on above: Performed By: #### L 500.3400, L501.9520, L500.2500, L501.2300, L100.0100, L501.5200 #### [facility] [address] [place], [address] Urea nitrogen [Mass/Vol] 18 mg/dL Normal 4-19 [facility] Comment on above: Performed By: #### L 500.3400, L501.9520, L500.2500, L501.2300, L100.0100, L501.5200 #### [facility] [address] [place], [address] CBC W/Diff, Automatedon 10-3 0 Anisocytosis Ql (Bld) 3+ Normal [facility] Comment on above: Performed By: #### L 500.3400, L501.9520, L500.2500, L501.2300, L100.0100, L501.5200 #### [facility] [address] [place], [address] SMEAR COMMENT SCANNED Normal [facility] Comment on above: Performed By: #### L 500.3400, L501.9520, L500.2500, L501.2300, L100.0100, L501.5200 #### [facility] [address] [place], [address] Basic Metabolic Profile (BMP )on 04-13-2025 BUN/CRE 22.7 RATIO High - [facility] Comment on above: Performed By: #### L 500.3400, L501.9520, L500.2500, L501.2300, L100.0100, L501.5200 #### [facility] [address] [place], [address] Calcium [Mass/Vol] 8.6 mg/dL Normal 7.6-11.0 [facility] Comment on above: Performed By: #### L 500.3400, L501.9520, L500.2500, L501.2300, L100.0100, L501.5200 #### [facility] [address] [place], [address] Chloride [Moles/Vol] 108 mmol/L Normal 98-108 [facility] Comment on above: Performed By: #### L 500.3400, L501.9520, L500.2500, L501.2300, L100.0100, L501.5200 #### [facility] [address] [place], [address] CO2 [Moles/Vol] 19.7 mmol/L Low 21.0-32.0 [facility] Comment on above: Performed By: #### L 500.3400, L501.9520, L500.2500, L501.2300, L100.0100, L501.5200 #### [facility] [address] [place], [address] Creatinine [Mass/Vol] 1.06 mg/dL Normal 0.70-1.20 [facility] Comment on above: Performed By: #### L 500.3400, L501.9520, L500.2500, L501.2300, L100.0100, L501.5200 #### [facility] [address] [place], [address] ECRCL 64.23 ml/min Normal 50-250 [facility] Comment on above: Performed By: #### L 500.3400, L501.9520, L500.2500, L501.2300, L100.0100, L501.5200 #### [facility] [address] [place], [address] GAP 11 Normal 5-15 [facility] Comment on above: Performed By: #### L 500.3400, L501.9520, L500.2500, L501.2300, L100.0100, L501.5200 #### [facility] [address] [place], [address] GFR/1.73 sq M.predicted among non-blacks MDRD (S/P/Bld) [Vol rate/Area] 59 mL/min/{1.73_m2} Low >60 [facility] Comment on above: Result Comment: mL/m in/1.73m2 CKD-EPI Creatinine Equation (2020) Performed By: #### L 500.3400, L501.9520, L500.2500, L501.2300, L100.0100, L501.5200 #### [facility] [address] [place], [address] Glucose [Mass/Vol] 107 mg/dL High 70-99 [facility] Comment on above: Performed By: #### L 500.3400, L501.9520, L500.2500, L501.2300, L100.0100, L501.5200 #### [facility] [address] [place], [address] Potassium [Moles/Vol] 4.1 mmol/L Normal 3.3-5.1 [facility] Comment on above: Performed By: #### L 500.3400, L501.9520, L500.2500, L501.2300, L100.0100, L501.5200 #### [facility] [address] [place], [address] Sodium [Moles/Vol] 138 mmol/L Normal 133-145 [facility] Comment on above: Performed By: #### L 500.3400, L501.9520, L500.2500, L501.2300, L100.0100, L501.5200 #### [facility] [address] [place], [address] Urea nitrogen [Mass/Vol] 24 mg/dL High 4-19 [facility] Comment on above: Performed By: #### L 500.3400, L501.9520, L500.2500, L501.2300, L100.0100, L501.5200 #### [facility] [address] [place], [address] CBC W/Diff, Automatedon 10-2 Anisocytosis Ql (Bld) 2+ Normal [facility] Comment on above: Performed By: #### L 500.3400, L501.9520, L500.2500, L501.2300, L100.0100, L501.5200 #### [facility] [address] [place], [address] HYPOCHROMASIA 2+ Normal [facility] Comment on above: Performed By: #### L 500.3400, L501.9520, L500.2500, L501.2300, L100.0100, L501.5200 #### [facility] [address] [place], [address] HH, Hemoglobin AND Hematocri ton 04-13-2025 Hematocrit (Bld) [Volume fraction] 27.1 % Low 37-47 [facility] Comment on above: Performed By: #### L 500.3400, L501.9520, L500.2500, L501.2300, L100.0100, L501.5200 #### [facility] [address] [place], [address] Hemoglobin (Bld) [Mass/Vol] 7.9 g/dL Low 12.0-15.0 [facility] Comment on above: Performed By: #### L 500.3400, L501.9520, L500.2500, L501.2300, L100.0100, L501.5200 #### [facility] [address] [place], [address] Liver Profileon 04-13-2025 Albumin [Mass/Vol] 3.5 g/dL Normal 3.4-4.8 [facility] Comment on above: Performed By: #### L 500.3400, L501.9520, L500.2500, L501.2300, L100.0100, L501.5200 #### [facility] [address] [place], [address] ALK PHOS 57 U/L Normal 35-104 [facility] Comment on above: Performed By: #### L 500.3400, L501.9520, L500.2500, L501.2300, L100.0100, L501.5200 #### [facility] [address] [place], [address] ALT [Catalytic activity/Vol] U/L Normal <=34 [facility] Comment on above: Performed By: #### L 500.3400, L501.9520, L500.2500, L501.2300, L100.0100, L501.5200 #### [facility] [address] [place], [address] AST [Catalytic activity/Vol] 13 U/L Normal <=31 [facility] Comment on above: Performed By: #### L 500.3400, L501.9520, L500.2500, L501.2300, L100.0100, L501.5200 #### [facility] [address] [place], [address] Bilirubin [Mass/Vol] 1.52 mg/dL High 0.00-1.30 [facility] Comment on above: Performed By: #### L 500.3400, L501.9520, L500.2500, L501.2300, L100.0100, L501.5200 #### [facility] [address] [place], [address] Bilirubin.direct [Mass/Vol] 0.58 mg/dL High 0.00-0.30 [facility] Comment on above: Performed By: #### L 500.3400, L501.9520, L500.2500, L501.2300, L100.0100, L501.5200 #### [facility] [address] [place], [address] Globulin (S) [Mass/Vol] 3.2 g/dL Normal 2.2-4.2 [facility] Comment on above: Performed By: #### L 500.3400, L501.9520, L500.2500, L501.2300, L100.0100, L501.5200 #### [facility] [address] [place], [address] T PROT 6.6 g/dL Normal 5.9-8.4 [facility] Comment on above: Performed By: #### L 500.3400, L501.9520, L500.2500, L501.2300, L100.0100, L501.5200 #### [facility] [address] [place], [address] Magnesiumon 04-13-2025 Magnesium [Mass/Vol] 2.0 mg/dL Normal 1.5-2.2 [facility] Comment on above: Performed By: #### L 500.3400, L501.9520, L500.2500, L501.2300, L100.0100, L501.5200 #### [facility] [address] [place], [address] Phosphoruson 04-13-2025 Phosphate [Mass/Vol] 3.0 mg/dL Normal 2.7-4.5 [facility] Comment on above: Performed By: #### L 500.3400, L501.9520, L500.2500, L501.2300, L100.0100, L501.5200 #### [facility] [address] [place], [address] Thyroid Stim Hormone (TSH)on 04-13-2025 TSH 2.240 uIU/mL Normal 0.300-4.200 [facility] Comment on above: Performed By: #### L 500.3400, L501.9520, L500.2500, L501.2300, L100.0100, L501.5200 #### [facility] [address] [place], [address] Urine Cultureon 04-13-2025 URC Below infection level. Mixed Gram Positive Organisms Grenola Count <1000 MIXC Mixed contaminants. Submit a new specimen if indicated. Normal [facility] Comment on above: Performed By: #### L 500.3400, L501.9520, L500.2500, L501.2300, L100.0100, L501.5200 #### [facility] [address] [place], [address] BRCon 04-12-2025 RC Normal [facility] Comment on above: Result Comment: [id number] AN RC TRANSFUSED 04/12/25 1047 [id number] AN RC TRANSFUSED 04/12/25 1355 [id number] AN RC TRANSFUSED 04/12/25 2001 [id number] AN RC TRANSFUSED 04/12/25 1702 Performed By: #### L 500.3400, L501.9520, L500.2500, L501.2300, L100.0100, L501.5200 #### [facility] [address] [place], [address] Basic Metabolic Profile (BMP )on 04-12-2025 BUN/CRE 17.7 RATIO Normal 10-20 [facility] Comment on above: Performed By: #### L 500.3400, L501.9520, L500.2500, L501.2300, L100.0100, L501.5200 #### [facility] [address] [place], [address] Calcium [Mass/Vol] 9.5 mg/dL Normal 7.6-11.0 [facility] Comment on above: Performed By: #### L 500.3400, L501.9520, L500.2500, L501.2300, L100.0100, L501.5200 #### [facility] [address] [place], [address] Chloride [Moles/Vol] 104 mmol/L Normal 98-108 [facility] Comment on above: Performed By: #### L 500.3400, L501.9520, L500.2500, L501.2300, L100.0100, L501.5200 #### [facility] [address] [place], [address] CO2 [Moles/Vol] 20.9 mmol/L Low 21.0-32.0 [facility] Comment on above: Performed By: #### L 500.3400, L501.9520, L500.2500, L501.2300, L100.0100, L501.5200 #### [facility] [address] [place], [address] Creatinine [Mass/Vol] 1.47 mg/dL High 0.70-1.20 [facility] Comment on above: Performed By: #### L 500.3400, L501.9520, L500.2500, L501.2300, L100.0100, L501.5200 #### [facility] [address] [place], [address] ECRCL 46.60 ml/min Low 50-250 [facility] Comment on above: Performed By: #### L 500.3400, L501.9520, L500.2500, L501.2300, L100.0100, L501.5200 #### [facility] [address] [place], [address] GAP 14 Normal 5-15 [facility] Comment on above: Performed By: #### L 500.3400, L501.9520, L500.2500, L501.2300, L100.0100, L501.5200 #### [facility] [address] [place], [address] GFR/1.73 sq M.predicted among non-blacks MDRD (S/P/Bld) [Vol rate/Area] 40 mL/min/{1.73_m2} Low >60 [facility] Comment on above: Result Comment: mL/m in/1.73m2 CKD-EPI Creatinine Equation (2020) Performed By: #### L 500.3400, L501.9520, L500.2500, L501.2300, L100.0100, L501.5200 #### [facility] [address] [place], [address] Glucose [Mass/Vol] 132 mg/dL High 70-99 [facility] Comment on above: Performed By: #### L 500.3400, L501.9520, L500.2500, L501.2300, L100.0100, L501.5200 #### [facility] [address] [place], [address] Potassium [Moles/Vol] 4.0 mmol/L Normal 3.3-5.1 [facility] Comment on above: Performed By: #### L 500.3400, L501.9520, L500.2500, L501.2300, L100.0100, L501.5200 #### [facility] [address] [place], [address] Sodium [Moles/Vol] 139 mmol/L Normal 133-145 [facility] Comment on above: Performed By: #### L 500.3400, L501.9520, L500.2500, L501.2300, L100.0100, L501.5200 #### [facility] [address] [place], [address] Urea nitrogen [Mass/Vol] 26 mg/dL High 4-19 [facility] Comment on above: Performed By: #### L 500.3400, L501.9520, L500.2500, L501.2300, L100.0100, L501.5200 #### [facility] [address] [place], [address] CBC (INCLUDES DIFF/PLT)on Basophils (Bld) [#/Vol] 0.072 10*3/uL Normal 0-200 [facility] Comment on above: Performed By: #### 1 0231, 927, 6399, 466, 899 #### [facility] [address] [facility], [address] [place] [address] State Manager: Matteo Montes MD Basophils/100 WBC (Bld) 0.7 % Normal [facility] Comment on above: Performed By: #### 1 0231, , 63, 466, 899 #### [facility] of [place] [address] State Manager: Matteo Montes MD COMMENT(S) Normal [facility] Comment on above: Result Comment: Poly chromasia 1 + Ovalocytes 1 + Anisocytosis 2 + Performed By: #### 1 0231, , 63, 466, 899 #### [facility] of [address], [address] [place] [address] State Manager: Matteo Montes MD Eosinophils (Bld) [#/Vol] 0.124 10*3/uL Normal 15-500 [facility] Comment on above: Performed By: #### 1 023, , 63, 466, 899 #### [facility] [place] [address] State Manager: Matteo Montes MD Eosinophils/100 WBC (Bld) 1.2 % Normal [facility] Comment on above: Performed By: #### 1 230, , 63, 466, 899 #### [facility] [place] [address] State Manager: Matteo Montes MD Erythrocyte distribution width (RBC) [Ratio] 20.3 % High 11.0-15.0 [facility] Comment on above: Performed By: #### 1 023, , 63, 466, 899 #### [facility] [place] [address] State Manager: Matteo Montes MD Hematocrit (Bld) [Volume fraction] 16.9 % Low 35.0-45.0 [facility] Diagnostics Comment on above: Performed By: #### 1 023, 92, 63, 466, 899 #### [facility] [place] [address] State Manager: Matteo Montes MD Hemoglobin (Bld) [Mass/Vol] 3.7 g/dL Critically low 11.7-15.5 [facility] Comment on above: Result Comment: Abno rmal results noted. Sample investigated and no testing issues identified; however, preanalytical factors cannot be ruled out. Recommend clinical correlation and follow-up as appropriate. Consider recollection and retesting if the results do not match the clinical presentation. Verified by repeat analysis. Performed By: #### 1 230, , 63, 466, 899 #### [facility] [place] [address] State Manager: Matteo Montes MD Lymphocytes (Bld) [#/Vol] 1.555 10*3/uL Normal 850-3900 [facility] Comment on above: Performed By: #### 1 230, , 63, 466, 899 #### [facility] [place] [address] State Manager: Matteo Montes MD Lymphocytes/100 WBC (Bld) 15.1 % Normal [facility] Comment on above: Performed By: #### 1 230, , 63, 466, 899 #### [facility] [place] [address] State Manager: Matteo Montes MD MCH (RBC) [Entitic mass] pg Low 27.0-33.0 [facility] Comment on above: Performed By: #### 1 230, , 63, 466, 899 #### [facility] [place] [address] State Manager: Matteo Montes MD MCHC (RBC) [Mass/Vol] 21.9 g/dL Low 32.0-36.0 [facility] Comment on above: Result Comment: For adults, a slight decrease in the calculated MCHC value (in the range of 30 to 32 g/dL) is most likely not clinically significant; however, it should be interpreted with caution in correlation with other red cell parameters and the patient's clinical condition. Performed By: #### 1 023, 92, 63, 466, 899 #### [facility] [place] [address] State Manager: Matteo Montes MD MCV (RBC) [Entitic vol] 59.9 fL Low 80.0-100.0 [facility] Comment on above: Performed By: #### 1 0231, 927, 63, 466, 899 #### [facility] [place] [address] State Manager: Matteo Montes MD Monocytes (Bld) [#/Vol] 0.597 10*3/uL Normal 200-950 [facility] Comment on above: Performed By: #### 1 0231, , 63, 466, 899 #### [facility] [place] [address] State Manager: Matteo Montes MD Monocytes/100 WBC (Bld) 5.8 % Normal [facility] Comment on above: Performed By: #### 1 0231, 92, 63, 466, 899 #### [facility] [place] [address] State Manager: Matteo Montes MD Neutrophils (Bld) [#/Vol] 7.952 10*3/uL High 2658-8617 [facility] Comment on above: Performed By: #### 1 0231, 92, 63, 466, 899 #### [facility] [place] [address] State Manager: Matteo Montes MD Neutrophils/100 WBC (Bld) 77.2 % Normal [facility] Comment on above: Performed By: #### 1 0231, 92, 6399, 466, 899 #### [facility] [place] [address] State Manager: Matteo Montes MD Platelet mean volume (Bld) [Entitic vol] 9.7 fL Normal 7.5-12.5 [facility] Comment on above: Performed By: #### 1 0231, 92, 63, 466, 899 #### [facility] of [address], [address] [place] [address] State Manager: Matteo Montes MD Platelets (Bld) [#/Vol] 708 10*3/uL High 140-400 [facility] Comment on above: Performed By: #### 1 0231, 927, 6399, 466, 899 #### [facility] [address], [address] [place] [address] State Manager: Matteo Montes MD RBC (Bld) [#/Vol] 2.82 10*6/uL Low 3.80-5.10 [facility] Comment on above: Performed By: #### 1 0231, 927, 6399, 466, 899 #### [facility] [address], [address] [place] [address] State Manager: Matteo Montes MD WBC (Bld) [#/Vol] 10.3 10*3/uL Normal 3.8-10.8 [facility] Comment on above: Performed By: #### 1 0231, 927, 6399, 466, 899 #### [facility] [address], [address] [place] [address] State Manager: Matteo Montes MD CBC W/Diff, Automatedon 03-17 PATH REV Reviewed Normal [facility] Comment on above: Order Comment: CRITI KARIS VALUE CALLED TO HORR1 0948 Seda Parrish.RESULTS READ BACK BY SAME. Result Comment: Adeq uate leukocytes with normal morphology and distribution. Severe microcytic hypochromic anemia with marked anisocytosis. Rule out iron deficiency. Thrombocytosis. Rea Romano MD 04/12/2025 AMENDED REPORT 04/12/25 1531 PATH REV previously reported as: October Performed By: #### L 500.3400, L501.9520, L500.2500, L501.2300, L100.0100, L501.5200 #### [facility] [address] [place], [address] [facility] 04-12-2025 Albumin [Mass/Vol] 4.1 g/dL Normal 3.6-5.1 [facility] Comment on above: Performed By: #### 1 0231, 927, 6399, 466, 899 #### [facility] [address], [address] [place] [address] State Manager: Matteo Montes MD Albumin/Globulin [Mass ratio] 1.3 {ratio} Normal 1.0-2.5 [facility] Comment on above: Performed By: #### 1 0231, 927, 6399, 466, 899 #### [facility] [place] [address] State Manager: Matteo Montes MD ALP [Catalytic activity/Vol] 58 U/L Normal 37-153 [facility] Comment on above: Performed By: #### 1 0231, 927, 6399, 466, 899 #### [facility] [address], [address] [place] [address] State Manager: Matteo Montes MD ALT [Catalytic activity/Vol] 5 U/L Low 6-29 [facility] Comment on above: Performed By: #### 1 0231, 927, 6399, 466, 899 #### [facility] [place] [address] State Manager: Matteo Montes MD AST [Catalytic activity/Vol] 9 U/L Low 10-35 [facility] Comment on above: Performed By: #### 1 0231, 927, 6399, 466, 899 #### [facility] [place] [address] State Manager: Matteo Montes MD Bilirubin [Mass/Vol] 0.5 mg/dL Normal 0.2-1.2 [facility] Comment on above: Performed By: #### 1 0231, 927, 6399, 466, 899 #### [facility] [address], [address] [place] [address] State Manager: Matteo Montes MD Calcium [Mass/Vol] 9.3 mg/dL Normal 8.6-10.4 [facility] Comment on above: Performed By: #### 1 023, , 63, 466, 899 #### [facility] [place] [address] State Manager: Matteo Montes MD Chloride [Moles/Vol] 104 mmol/L Normal 98-110 [facility] Comment on above: Performed By: #### 1 230, , 63, 466, 899 #### [facility] [place] [address] State Manager: Matteo Montes MD CO2 [Moles/Vol] 22 mmol/L Normal 20-32 [facility] Comment on above: Performed By: #### 1 230, , 63, 466, 899 #### [facility] [place] [address] State Manager: Matteo Montes MD Creatinine [Mass/Vol] 1.45 mg/dL High 0.50-1.05 [facility] Comment on above: Performed By: #### 1 230, , 63, 466, 899 #### [facility] [place] [address] State Manager: Matteo Montes MD GFR/1.73 sq M.predicted among non-blacks MDRD (S/P/Bld) [Vol rate/Area] 41 mL/min/{1.73_m2} Low > OR = 60 [facility] Comment on above: Performed By: #### 1 023, , 63, 466, 899 #### [facility] [place] [address] State Manager: Matteo Montes MD Globulin (S) [Mass/Vol] 3.2 g/dL Normal 1.9-3.7 [facility] Comment on above: Performed By: #### 1 230, , 63, 466, 899 #### [facility] [place] [address] State Manager: Matteo Montes MD Glucose [Mass/Vol] 110 mg/dL High 65-99 [facility] Comment on above: Result Comment: Fasting reference interval For someone without known diabetes, a glucose value between 100 and 125 mg/dL is consistent with prediabetes and should be confirmed with a follow-up test. Performed By: #### 1 023, , 63, 466, 899 #### [facility] [place] [address] State Manager: Matteo Montes MD Potassium [Moles/Vol] 4.4 mmol/L Normal 3.5-5.3 [facility] Comment on above: Performed By: #### 1 230, , 63, 466, 899 #### [facility] [place] [address] State Manager: Matteo Montes MD Protein [Mass/Vol] 7.3 g/dL Normal 6.1-8.1 [facility] Comment on above: Performed By: #### 1 230, , 63, 466, 899 #### [facility] [place] [address] State Manager: Matteo Montes MD Sodium [Moles/Vol] 139 mmol/L Normal 135-146 [facility] Comment on above: Performed By: #### 1 230, , 63, 466, 899 #### [facility] [place] [address] State Manager: Matteo Montes MD Urea nitrogen [Mass/Vol] 25 mg/dL Normal 7-25 [facility] Comment on above: Performed By: #### 1 230, , 63, 466, 899 #### [facility] [place] [address] State Manager: Matteo Montes MD Urea nitrogen/Creatinine [Mass ratio] 17 mg/mg Normal 6-22 [facility] Comment on above: Performed By: #### 1 0231, 927, 6399, 466, 899 #### [facility] [address] [facility], [address] [place] [address] State Manager: Matteo Montes MD Chest 1 View (Portable)on Chest 1 View (Portable) [facility] Services [address] [place] [address] Chest 1 View (Portable) MR#: [id number] Acct: [id number] Name: STEPHANIE VELEZ Rep #: [id number] : 1960 F 64 From: Manoj Lopez MD PCP: Peter Sanchez PA-C Status: REG ER Study: Chest 1 View (Portable) Date of Exam: 04/12/25 Exam# [id number] Ordering Dr: Shai Wu MD PROCEDURE: CHEST 1 VIEW (PORTABLE) 04/12/2025 REASON FOR EXAM: CHEST PAIN TECHNIQUE: Frontal view of the chest. COMPARISON: None FINDINGS: Hardware: EKG leads Heart: The heart size is normal. Lungs: The lungs are clear. Bones: The bones are unremarkable. RAD/Chest 1 View (Portable) IMPRESSION: No acute abnormality Reading Location: [facility] CC: Dr. Shai Wu MD; Peter Sanchez Global Project Manager: Signed Normal [facility] Emergency Department Summary on 04-12-2025 Emergency Department Summary [facility] Medical Records Department [address] [place] [address] Emergency Department Summary 04/12/25 MR#: [id number] Acct: [id number] Name: STEPHANIE VELEZ Rep #: [id number] : 1960 64 From: Shai Wu MD PCP: Peter Sanchez PA-C Status:ADM IN Location: [address] History of Present Illness Chief Complaint: Abn Labs Informant: patient and spouse/S.O. Narrative Narrative: Patient is a 64-year-old female with no significant PMHx presenting with fatigue and weakness. - Reports a large skin mass present for at least 10 years, which has been slowly growing and mushrooming out. - Mass bleeds daily, requiring pressure to stop bleeding after showers. - Evaluated by a physician yesterday, who recommended surgical removal and performed lab work. - Hemoglobin reported as 3.7 g/dL this AM, so sent to hospital. - Experiencing fatigue for about a month, worsening over the past few days and has had some near- syncopal symptoms, no LOC. - Describes legs as feeling rubbery and weak, necessitating frequent rest when walking. - Denies dyspnea or chest discomfort with ambulation. - Denies melena, hematochezia, hematuria, or syncope. - Takes antacids regularly for sour stomach and gas after meals. - Last medical evaluation was in 2013; no known history of DM or HTN. - Family history of heart conditions. PFSH PFS Medical History Non-smoker Medical History no medical history no medical history Allergy/AdvReac Type Severity Reaction Status Date / Time No Known Allergies Allergy Verified 04/12/25 09:06 Social History Smoking Status: Never smoker [facility] ED Constitutional Constitutional ED: Reports fatigue and weakness; Denies chills or fever(s) Eyes Eyes: Denies change in vision or diplopia ENT ENT ED: Denies rhinorrhea or sore throat Cardiovascular Cardiovascular: Reports lightheadedness; Denies chest pain, leg edema, palpitations or syncope Respiratory/Chest Respiratory/Chest: Denies cough, dyspnea or dyspnea on exertion Gastrointestinal Gastrointestinal: Denies abdominal pain, diarrhea, nausea or vomiting Genitourinary Genitourinary ED: Denies dysuria or hematuria Musculoskeletal Musculoskeletal: Denies back pain or neck pain Integumentary Reports other Details: slowly oozing/bleeding mass right upper arm, no pain ; Denies abscess or rash Neurologic Neurologic: Denies headache(s), paresthesias or weakness Psychiatric Psychiatric: Denies anxiety or suicidal thoughts EXAM Physical Exam Const Vital Signs: 04/12/25 09:06 04/12/25 09:20 04/12/25 09:38 Temperature 98.7 F Temperature Source Oral Pulse Rate 129 H Pulse Rate [Lying] 103 H Pulse Rate [Sitting (for 1 minute prior to obtaining)] 102 H Pulse Rate [Standing (for 1 minute prior to obtaining)] 110 H Respiratory Rate 18 Respiratory Pattern Blood Pressure 170/61 H Blood Pressure [Lying] 149/61 H Blood Pressure [Sitting (for 1 minute prior to obtaining)] 157/62 H Blood Pressure [Standing (for 1 minute prior to obtaining)] 108/47 L Blood Pressure Mean 97 Blood Pressure Mean [Lying] 90 Blood Pressure Mean [Sitting (for 1 minute prior to obtaining)] 93 Blood Pressure Mean [Standing (for 1 minute prior to obtaining)] 67 Blood Pressure Source Blood Pressure Location Pulse Ox 98 100 Oxygen Delivery Method Room Air Room Air 04/12/25 09:45 04/12/25 10:59 Temperature 98.2 F Temperature Source Oral Pulse Rate 102 H Pulse Rate [Lying] Pulse Rate [Sitting (for 1 minute prior to obtaining)] Pulse Rate [Standing (for 1 minute prior to obtaining)] Respiratory Rate 18 Respiratory Pattern Normal Blood Pressure 164/64 H Blood Pressure [Lying] Blood Pressure [Sitting (for 1 minute prior to obtaining)] Blood Pressure [Standing (for 1 minute prior to obtaining)] Blood Pressure Mean 97 Blood Pressure Mean [Lying] Blood Pressure Mean [Sitting (for 1 minute prior to obtaining)] Blood Pressure Mean [Standing (for 1 minute prior to obtaining)] Blood Pressure Source Monitor Blood Pressure Location Left Arm Pulse Ox 100 Oxygen Delivery Method Positive well nourished and well developed Constitutional Narrative: pallorus. well-appearing otherwise. General Appearance ED: well developed and NAD HEENT Reports moist mucous membranes normocephalic and atraumatic Eyes PERRL and EOMs intact bilaterally Neck full ROM and supple Resp normal respiratory effort and clear to auscultation bilaterally Cardio regular rate, regular rhythm and no murmurs Rate: tachycardic GI non-tender and non-distended Auscultation: normoactive bowel sounds Palpation: soft Back/Spine no CVA tenderness General Back: other FROM Extremity normal to inspect (more content not included)... Normal [facility] FOLATE, SERUMon 04-12-2025 Folate [Mass/Vol] 5.8 ng/mL Normal [facility] Comment on above: Result Comment: Refe rence Range Low: <3.4 Borderline: 3.4-5.4 Normal: >5.4 Performed By: #### 1 0231, 927, 1799, 466, 899 #### [facility] [address], [address] [place] [address] State Manager: Matteo Montes MD Ferritinon 04-12-2025 Ferritin [Mass/Vol] 4 ng/mL Low 22-378 [facility] Comment on above: Performed By: #### L 500.3400, L501.9520, L500.2500, L501.2300, L100.0100, L501.5200 #### [facility] [address] [place], [address] H AND P Exam - Hospitaliston 04-12-2025 H&P Exam - Hospitalist [facility] Medical Records Department [address] [place] [address] H P Exam - Hospitalist 04/12/25 1108 MR#: [id number] Acct: [id number] Name: STEPHANIE VELEZ Rep #: [id number] : 1960 64 From: Marv Cottrell MD PCP: Peter Sanchez PA-C Status:ADM IN Location: [facility] [id number] HPI - General General Date of Admission: 04/12/25 Date of Service: 04/12/25 Chief Complaint: Fatigue HPI Narrative STEPHANIE VELEZ, is a 64 F in relatively good health with no chronic medical issues who has not been to a physician for over a decade presented to the emergency department with fatigue. Per patient she did notice increasing fatigue over the past couple of days. She does report the presence of a soft tissue lesion on the lateral aspect of the right forearm which has existed for over a decade. She did admit to occasional bleeding from the lesion. She had apparently refused to see any doctor. She finally made a decision to present to the emergency department hemoglobin was found to be 3.9. On further questioning patient denied any black tarry stools. Denied any vomiting of blood. He denied any use of [id number] pain medications. Decision was made to admit patient to a monitored bed. Patient was typed and crossmatched and an order given for patient to be transfused with 4 unit PRBC prior to patient being admitted. PFSH Medical History Non-smoker Medical History no medical history Allergy/AdvReac Type Severity Reaction Status Date / Time No Known Allergies Allergy Verified 04/12/25 09:06 Social History Smoking Status: Never smoker ROS ROS Narrative GENERAL: denies fever, chills, night sweats, weight loss, anorexia HEENT: denies headache, sinus congestion, or drainage, dysphagia RESPIRATORY: dyspnea on exertion CARDIAC: denies chest pain, palpitations, orthopnea, PND GASTROINTESTINAL: denies abdominal pain, nausea, vomiting, melena, GENITOURINARY: denies dysuria, urgency, frequency, heamaturia EXTREMITY: denies swelling MUSCULOSKELETAL: denies current joint pain or tenderness NEUROLOGIC: denies focal numbness, weakness, tingling HEMATOLOGIC: denies easy bruising and/or hemorrhage INTEGUMENT: Soft tissue skin lesion on the lateral aspect of the right forearm PSYCHIATRIC: denies suicidal or homicidal ideation Vital Signs Vital Signs Vital Signs: 04/12/25 09:06 04/12/25 09:20 04/12/25 09:38 Temperature 98.7 F Temperature Source Oral Pulse Rate 129 H Pulse Rate [Lying] 103 H Pulse Rate [Sitting (for 1 minute prior to obtaining)] 102 H Pulse Rate [Standing (for 1 minute prior to obtaining)] 110 H Respiratory Rate 18 Respiratory Pattern Blood Pressure 170/61 H Blood Pressure [Lying] 149/61 H Blood Pressure [Sitting (for 1 minute prior to obtaining)] 157/62 H Blood Pressure [Standing (for 1 minute prior to obtaining)] 108/47 L Blood Pressure Mean 97 Blood Pressure Mean [Lying] 90 Blood Pressure Mean [Sitting (for 1 minute prior to obtaining)] 93 Blood Pressure Mean [Standing (for 1 minute prior to obtaining)] 67 Blood Pressure Source Blood Pressure Location Pulse Ox 98 100 Oxygen Delivery Method Room Air Room Air 04/12/25 09:45 04/12/25 10:59 Temperature 98.2 F Temperature Source Oral Pulse Rate 102 H Pulse Rate [Lying] Pulse Rate [Sitting (for 1 minute prior to obtaining)] Pulse Rate [Standing (for 1 minute prior to obtaining)] Respiratory Rate 18 Respiratory Pattern Normal Blood Pressure 164/64 H Blood Pressure [Lying] Blood Pressure [Sitting (for 1 minute prior to obtaining)] Blood Pressure [Standing (for 1 minute prior to obtaining)] Blood Pressure Mean 97 Blood Pressure Mean [Lying] Blood Pressure Mean [Sitting (for 1 minute prior to obtaining)] Blood Pressure Mean [Standing (for 1 minute prior to obtaining)] Blood Pressure Source Monitor Blood Pressure Location Left Arm Pulse Ox 100 Oxygen Delivery Method Weight Weight: 85.638 kg Body Mass Index (BMI) 27.1 Physical Exam Narrative GENERAL: cooperative HEENT: Atraumatic; normocephalic EYES; Anicteric, pallor of the conjunctiva NECK; supple, normal thyroid, RESPIRATORY: Diminished to auscultation CARDIOVASCULAR: Regular S1 S2, GI: soft, normoactive bowel sounds, : No Renal angle tenderness; EXTREMITIES: No edema, no clubbing, MUSCULOSKELETAL: no muscle wasting NEURO: Awake; no lateralizing signs. SKIN: Soft tissue lesion measuring about 15 cm with areas of bleeding on the lateral aspect of the right forearm PSYCH; Flat affect Results Lab / Micro Data 04/12/25 09:24 04/12/25 09:24 Labs: Laboratory Results - last 24 hr 04/12/25 09:24: WBC 10.8, RBC 2.88 L, Hgb 3.9 L*, Hct 16.7 L, MCV 58.0 L, MCH 13.5 L, MCHC 23.4 L, RDW Std D (more content not included)... Normal [facility] Iron+Iron Binding Capacityon 04-12-2025 Iron [Mass/Vol] 10 ug/dL Low 50-170 [facility] Comment on above: Performed By: #### L 500.3400, L501.9520, L500.2500, L501.2300, L100.0100, L501.5200 #### [facility] [address] [place], [place], [id number] IRON SATURATION 2.6 Low 13-59 [facility] Comment on above: Performed By: #### L 500.3400, L501.9520, L500.2500, L501.2300, L100.0100, L501.5200 #### [facility] [address] [place], [address] TIBC 376 ug/dL Normal 250-450 [facility] Comment on above: Performed By: #### L 500.3400, L501.9520, L500.2500, L501.2300, L100.0100, L501.5200 #### [facility] [address] [place], [address] UIBC 366 ug/dL Normal 228-428 [facility] Comment on above: Performed By: #### L 500.3400, L501.9520, L500.2500, L501.2300, L100.0100, L501.5200 #### [facility] [address] [place], [address] L501.4021on 04-12-2025 Trop T High Sen 12 ng/L Normal <=14 [facility] Comment on above: Performed By: #### L 501.4021 #### [facility] [address] [place], [address] Trop T High Sen 14 ng/L Normal <=14 [facility] Comment on above: Performed By: #### L 500.3400, L501.9520, L500.2500, L501.2300, L100.0100, L501.5200 #### [facility] [address] [place], [address] Pro- Brain NATRIURETIC PEPTI Max 04-12-2025 Natriuretic peptide B (Bld) [Mass/Vol] 1406 pg/mL High <=900 [facility] Comment on above: Result Comment: Hear t Failure Unlikely: < 300 pg/mL Heart Failure Likely < 50 Years: > 450 pg/mL 50-75 Years: > 900 pg/mL >75 Years: > 1800 pg/mL Performed By: #### L 500.3400, L501.9520, L500.2500, L501.2300, L100.0100, L501.5200 #### [facility] [address] [place], [address] Stool Occult Blood iFOBon STOB Negative Normal [facility] Comment on above: Performed By: #### L 500.3400, L501.9520, L500.2500, L501.2300, L100.0100, L501.5200 #### [facility] [address] [place], [address] TSHon 04-12-2025 TSH Qn 2.16 m[IU]/L Normal 0.40-4.50 [facility] Comment on above: Performed By: #### 1 0231, 927, 6399, 466, 899 #### [facility] [address] [facility], [address] [place] [address] State Manager: Matteo Montes MD Troponin T HS 2 HRon 025 Trop T High Sen 13 ng/L Normal <=14 [facility] Comment on above: Performed By: #### L 499.0042 #### [facility] [address] [place], [place], [id number] Troponin T HS 4 HRon 025 Trop T High Sen 11 ng/L Normal <=14 [facility] Comment on above: Performed By: #### L 499.0043 #### [facility] [address] [place], [place], [id number] Type AND Screenon 04-12-2025 ABO and Rh group Nom (Bld) Blood group A Rh(D) negative Normal [facility] Comment on above: Order Comment: CMV N EG? NNumber of units to transfuse: 4Is pt's Hgb is = to 7.0 mg/dl or Hct </= 21%? YReason for Ordering Blood: ChronicIs there symptomatic anemia? Kecia the blood/blood products to be transfused? YIs the patient having/had surgery? NWhen ReadyNY Performed By: #### L 500.3400, L501.9520, L500.2500, L501.2300, L100.0100, L501.5200 #### [facility] [address] [place], [address] Urinalysis, Completeon 04-12 WBC 0-5 SEEN Normal 0-5 [facility] Comment on above: Order Comment: COLLE CTOR TO SPECIFY Performed By: #### L 500.3400, L501.9520, L500.2500, L501.2300, L100.0100, L501.5200 #### [facility] [address] [place], [address] BACTERIA 0 SEEN Normal None Seen [facility] Comment on above: Order Comment: COLLE CTOR TO SPECIFY Performed By: #### L 500.3400, L501.9520, L500.2500, L501.2300, L100.0100, L501.5200 #### [facility] [address] [place], [address] EPI,SQUAMOUS 0 SEEN Normal 5-10 [facility] Comment on above: Order Comment: COLLE CTOR TO SPECIFY Performed By: #### L 500.3400, L501.9520, L500.2500, L501.2300, L100.0100, L501.5200 #### [facility] [address] [place], [address] Mucus Ql (Urine sed) 0 SEEN Normal [facility] Comment on above: Order Comment: COLLE CTOR TO SPECIFY Performed By: #### L 500.3400, L501.9520, L500.2500, L501.2300, L100.0100, L501.5200 #### [facility] [address] [place], [address] RBC 0 SEEN Normal 0-5 [facility] Comment on above: Order Comment: COLLE CTOR TO SPECIFY Performed By: #### L 500.3400, L501.9520, L500.2500, L501.2300, L100.0100, L501.5200 #### [facility] [address] [place], [address] VITAMIN B12on 04-12-2025 Cobalamin (Vitamin B12) [Mass/Vol] 230 pg/mL Normal 200-1100 [facility] Comment on above: Result Comment: Please Note: Although the reference range for vitamin B12 is 200-1100 pg/mL, it has been reported that between 5 and 10% of patients with values between 200 and 400 pg/mL may experience neuropsychiatric and hematologic abnormalities due to occult B12 deficiency; less than 1% of patients with values above 400 pg/mL will have symptoms. Performed By: #### 1 [phone] [phone] [phone], [phone] #### [facility] [address] [place] [address] State Manager: Matteo Montes MD Encounters Encounter Date Encounter Type Care Provider Facility Start: 04-12-2025 ambulatory [facility] Facility:[facility] Start: 04-12-2025 End: 04-14-2025 Evaluation and management of inpatient [facility] Facility:[facility] Payers Date Payer Category Payer Self-pay 2025 Unknown [id number] Unknown [id number] [id number] [id number] Unknown [id number] [id number] [id number] Unknown [id number] 2.16.8 [id number] Unknown [id number] 2.16.8 [id number] Discharge summary note 04-14-2025 Note Date & Type Note Facility 04-14-2025 Note [facility] Medical Records Department [address] [place] [address] Discharge Summary 04/14/25 0945 MR#: [id number] Acct: [id number] Name: STEPHANIE VELEZ Rep #: [id number] : 1960 64 From: Marv Cottrell MD PCP: Peter Sanchez PA-C Status:ADM IN Location: [facility] [id number] Providers Date of Admission: 04/12/25 Date of Discharge: 04/14/25 Primary Care Physician: Peter Sanchez PA-C Consultations 04/13/25 14:03 Consult: Onc/Wound/image scientist Routine Comment: Reason For Visit: SEVERE ANEMIA Diagnosis Discharge Diagnosis (1) Mass of skin of right upper extremity: Status: Acute Code(s): R22.31 - Localized swelling, mass and lump, right upper limb (2) Symptomatic anemia: Status: Acute Code(s): D64.9 - Anemia, unspecified Plan Patient is a 64-year-old female presented with exertional fatigue found to be anemic with a hemoglobin of 3.9 1. Severe symptomatic anemia ??? Patient hemoglobin on admission was 3.9. Subsequent red cell indices indicated severe microcytic anemia with MCV of 58 and MCH of 31.5 and MCV HC of 23.4. Subsequently ordered iron studies. Patient typed and screened and crossmatched and an order given from the emergency department for patient to be transfused with 3 unit PRBC. Did explain to patient the source of anemia from chronic bleeding from the lesion on her right forearm however given her age patient will need to undergo endoscopic evaluation to rule out any underlying malignancy - 04/13/2025 patient hemoglobin up to 7.6 and order was given for patient to receive additional parenteral iron ??? 04/14/2025;Patient seen hemoglobin stable at 7.8. Plan is for patient to follow-up with primary care physician to be referred to dermatology/plastic surgery as outpatient. Patient will also need to follow-up with GI for outpatient endoscopic evaluation 2. Severe iron deficiency anemia ??? Patient presented with symptomatic anemia and order was given for patient to be transfused with 4 unit PRBC. Iron studies did reveal total iron of 10 and iron saturation of 2.6. Patient was also ordered parenteral iron 3. Thrombocytosis ??? Reactive secondary to patient severe iron deficiency anemia 4. Acute renal failure ??? Baseline creatinine unknown patient started on IV hydration repeat BMP ordered for a.m. ??? 04/13/2025; patient baseline creatinine was unknown at the time of her admission kidney function however did improve and creatinine is down to 1.06 5. Abnormal urinalysis ??? Patient was found to have positive leukocyte esterase started on ceftriaxone urine culture sent ??? 04/13/2025; patient remains on ceftriaxone urine cultures pending 6. Elevated blood pressure???newly diagnosed hypertension ??? Patient does not have a known diagnosis of hypertension. She did admit to having whitecoat syndrome. Will continue to monitor and start patient on antihypertensives if patient blood pressure remains elevated ??? 04/13/2025; patient blood pressure remains markedly elevated patient started on amlodipine as well as losartan 7. Soft tissue lesion measuring about 15 cm with areas of bleeding on the lateral aspect of the right forearm ??? Patient has had a lesion for over 10 years. Plan was to have consulted plastic surgery for eval however plastic surgery currently not taking any consult. Plan is to schedule an outpatient appointment with either plastic surgery or dermatology on discharge 8. DVT prophylaxis ??? Bilateral SCDs Time spent in the patient's overall evaluation,decision-making process, review of diagnostic data, adjustment of management, discussion with other providers, nursing nursing and ancillary staff involved in patient's care documentation, 35-minute Medications at Discharge Home Medications amlodipine 5 mg tablet 5 mg PO DAILY #90 tabs 04/14/25 losartan 50 mg-hydrochlorothiazide 12.5 mg tablet 1 tab PO DAILY #90 tabs 04/14/25 polysaccharide iron complex 150 mg iron capsule (Ferrex) 150 mg PO DAILYCM #90 caps 04/14/25 Physical Exam Narrative GENERAL: cooperative HEENT: Atraumatic; normocephalic EYES; Anicteric, pallor of the conjunctiva NECK; supple, normal thyroid, RESPIRATORY: Diminished to auscultation CARDIOVASCULAR: Regular S1 S2, GI: soft, normoactive bowel sounds, : No Renal angle tenderness; EXTREMITIES: No edema, no clubbing, MUSCULOSKELETAL: no muscle wasting NEURO: Awake; no lateralizing signs. SKIN: Soft tissue lesion measuring about 15 cm with areas of bleeding on the lateral aspect of the right forearm PSYCH; Flat affect Weight / BMI Weight Weight: 84.5 kg Body Mass Index (BMI) 26.7 ABG / Lab / Microbiology Data 04/14/25 06:31 04/14/25 06:31 Laboratory: Laboratory Results - last 24 hr 04/14/25 06:31: WBC 9.7, RBC 3.92 L, Hgb 7.8 L, Hct 27.4 L, MCV 69.9 L, MCH 19. (more content not included)... [facility] Summary Purpose Family History No Family History Records FoundNo Family History Records Found Advance Directives No Advanced Directives Records FoundNo Advanced Directives Records Found Additional Source Comments INFORMATION SOURCE (unrecogn ized section and content) DATE CREATED AUTHOR 04/14/2025 [facility] DATE CREATED AUTHOR AUTHOR'S ORGANIZ ATION 04/24/2025 [facility] FOR RECORDS PERTAINING TO PATIENTS WHO ARE OR HAVE BEEN ENROLLED IN A CHEMICAL DEPENDENCY/SUBSTANCEABUSE PROGRAM, SOME INFORMATION MAY BE OMITTED. This clinical summary was aggregated from multiple sources. Caution should be exercised in using it in the provision of clinical care. This summary normalizes information from multiple sources, and as a consequence, information in this document may materially change the coding, format and clinical context of patient data. In addition, data may be omitted in some cases. CLINICAL DECISIONS SHOULD BE BASED ON THE PRIMARY CLINICAL RECORDS. [facility]. provides no warranty or guarantee of the accuracy or completeness of information in this document.
== END | disposition home or self-care (01) ==
PROVIDERS: PCP Student in an Organized Health Care Education/Training Program; Referring Provider Student in an Organized Health Care Education/Training Program; Visit Provider Student in an Organized Health Care Education/Training Program
DX: R22.31 Localized swelling, mass and lump, right upper limb (principal)
CPT/HCPCS: 73201; Q9967; A4216